=== PATIENT | male | born 1950 | race Caucasian/White ===

== ENCOUNTER → 2016-09-01 | Outpatient (CLI) | payer OTHER ==
[~2016-09-01] MED LIST: LISI5TAB3 PO; LRT5 PO; METFORMIN; NAPROXEN; PANT40TA PO; SIMVASTIN; TOPROL
[2016-09-01 12:38] LABS: ESTIMATED AVERAGE GLUCOSE 217 mg/dl; HA1C FLAG Normal (Normal)
== END | disposition home or self-care (01) ==
LOC: C.LAB 10:54
PROVIDERS: ATTEND Internal Medicine
DX: E11.9 Type 2 diabetes mellitus without complications (principal)

== ENCOUNTER → 2017-03-05 | Outpatient (CLI) | payer OTHER ==
[2017-03-05 12:31] LABS: ALT/SGPT 42 U/L (12-78); AST/SGOT 30 U/L (15-37); BLOOD UREA NITROGEN 18 mg/dl (7-18); BUN/CREATININE RATIO 18.4 (10-20); CALCIUM 9.2 mg/dl (8.5-10.1); CARBON DIOXIDE 29 mmol/L (21-32); CHLORIDE 102 mmol/L (98-107); CREATININE 0.98 mg/dl (0.60-1.40); GLUCOSE 255 mg/dl (70-99); POTASSIUM 4.6 mmol/L (3.5-5.1); SODIUM 137 mmol/L (136-145)
[2017-03-05 12:42] LABS: ALB/GLOB RATIO 0.9 (0.9-2); ALKALINE PHOSPHATASE 63 U/L (45-117); CHOLESTEROL 168 mg/dl (0-200); CHOLESTEROL/HDL RATIO 4.5; HDL CHOLESTEROL 37 mg/dl; LDL CHOLESTEROL CALCULATED 94 mg/dl; PROSTATE SPECIFIC ANTIGEN 0.517 ng/ml (0.000-4.000); TRIGLYCERIDES 187 mg/dl (0-150); VERY LOW DENSITY LIPOPROT CALC 37 mg/dl
[2017-03-06 06:08] LABS: ESTIMATED AVERAGE GLUCOSE 243 mg/dl; HA1C FLAG Normal (Normal)
== END | disposition home or self-care (01) ==
LOC: C.LAB 11:45
PROVIDERS: ATTEND Internal Medicine
DX: G47.33 Obstructive sleep apnea (adult) (pediatric) (principal)

== ENCOUNTER → 2017-07-13 | Outpatient (CLI) | payer OTHER ==
[2017-07-13 13:02] LABS: BLOOD UREA NITROGEN 22 mg/dl (7-18); CALCIUM 9.4 mg/dl (8.5-10.1); CARBON DIOXIDE 27 mmol/L (21-32); CREATININE 1.05 mg/dl (0.60-1.40); GLUCOSE 158 mg/dl (70-99); POTASSIUM 4.3 mmol/L (3.5-5.1); SODIUM 133 mmol/L (136-145)
[2017-07-13 13:33] LABS: HEMOGLOBIN A1C 8.5 % (4.5-5.6)
== END | disposition home or self-care (01) ==
LOC: C.LABPBG 09:10
PROVIDERS: ATTEND Internal Medicine
DX: E11.9 Type 2 diabetes mellitus without complications (principal); I10 Essential (primary) hypertension

== ENCOUNTER 2019-05-02 15:11 | Inpatient (IN) ==
--- NOTE | 2019-05-02 15:40 | XRay Report ---
XR chest 1V portable CLINICAL HISTORY: Atypical chest pain and shortness of breath COMPARISON STUDY: 05/02/2019 FINDINGS: The heart is enlarged. There is mild interstitial thickening, similar to the preceding stud y given differences in technique. Interstitial markings are likely accentuated due to the patient's l arge body habitus. There is no focal pulmonary consolidation. There are no pleural effusions.[ IMPRESSION: Cardiomegaly with stable chronic interstitial thickening/vascular prominence. No evidence of acute parenchymal consolidation Electronically signed by: Mitchel Bess M.D. 05/02/2019 3:39 PM
[2019-05-02 15:55] LABS: Basophils # (auto) 0.02 K/uL (0-0.2); Basophils % (auto) 0.2 %; Eosinophils # (auto) 0.11 K/uL (0-0.5); Eosinophils % (auto) 1.3 %; Hemoglobin 12.9 g/dL (14.0-18.0); Immature Granulocytes # (auto) 0.02 K/uL (0.00-0.02); Immature Granulocytes % (auto) 0.2 %; Lymphocytes # (auto) 1.48 K/uL (1.2-3.4); Lymphocytes % (auto) 17.8 %; Mean Corpuscular Hemoglobin 30.4 pg (25-34); Mean Corpuscular Hgb Conc 33.9 g/dL (32-36); Mean Corpuscular Volume 89.4 fL (80-100); Mean Platelet Volume 9.8 fL (7.4-10.4); Monocytes # (auto) 0.95 K/uL (0.11-0.59); Monocytes % (auto) 11.4 %; Neutrophils # (auto) 5.73 K/uL (1.4-6.5); Neutrophils % (auto) 69.1 %; Platelet Count 189 K/uL (130-400); RDW Coefficient of Variation 14.4 % (11.5-14.5); Red Blood Count 4.25 M/uL (4.7-6.1); White Blood Count 8.31 K/uL (4.8-10.8)
[2019-05-02 16:17] LABS: Alanine Aminotransferase 28 U/L (12-78); Albumin Globulin Ratio 0.7 (0.9-2); Albumin Level 3.1 gm/dl (3.4-5.0); Alkaline Phosphatase 89 U/L (45-117); Aspartate Aminotransferase 21 U/L (15-37); BUN Creatinine Ratio 14.5 (10-20); Bilirubin,Total 0.8 mg/dl (0.2-1); Blood Urea Nitrogen 15 mg/dl (7-18); Calcium 9.2 mg/dl (8.5-10.1); Carbon Dioxide 25 mmol/L (21-32); Chloride 102 mmol/L (98-107); Est GFR (African American) 84.7; Est GFR (Non-African American) 73.1; Globulin 4.5 gm/dl (2.5-4.0); Glucose 237 mg/dl (70-99); Lipase 51 U/L (73-393); Magnesium 1.7 mg/dl (1.8-2.4); NT Pro B Type Natriuretic Pept 146 pg/ml (0-900); Potassium 4.5 mmol/L (3.5-5.1); Sodium 135 mmol/L (136-145); Total Protein 7.6 gm/dl (6.4-8.2); Troponin I < 0.015 ng/ml (0-0.045)
[2019-05-02] MEDS ORDERED: OPTIRAY 320 125ml IV PRN (16:32)
[2019-05-02] MEDS ORDERED: MAGNESIUM SULFATE / D5W 1 GM/100 ML BAG IV ONE (16:40)
--- NOTE | 2019-05-02 16:57 | CT Scan Report ---
CHEST CTA for PULMONARY ARTERIES CT DOSE: 1096.11 mGy.cm HISTORY: Shortness of breath. TECHNIQUE: Multiaxial CT images of the chest were performed following the intravenous administration of contrast to evaluate the pulmonary arteries. Maximal intensity projection images were also obtaine d. A dose lowering technique was utilized adhering to the principles of ALARA. COMPARISON STUDY: Chest CTA 09/26/2013. FINDINGS: Normal caliber thoracic aorta with no evidence for dissection. The heart is normal in size. No filling defects within the pulmonary arteries to suggest pulmonary embolus. Trace right pleural e ffusion. Small pericardial effusion. There appears a mild enhancement and thickening within the peric ardial lining. This raises the possibility of a pericarditis. This is new from the prior study. The v isualized liver, spleen, and adrenal glands are unremarkable. Slight increase in size in the mildly e nlarged bilateral hilar lymph nodes. Dominant right hilar lymph node measures 19 x 12 mm. Mediastinal lymph nodes are within normal limits. No suspicious lytic are blastic osseous lesions. Mild narrowin g and mild bronchial wall thickening within the central airways. No focal lung consolidations to sugg est pneumonia. IMPRESSION: 1. No evidence for pulmonary embolus. 2. Small pericardial effusion. There appears to be mild enhancement and thickening within the pericar dial lining. This raises the possibility of a pericarditis. This is new from the prior study. 3. Mild bronchial wall thickening and mild narrowing within the central bronchi. This may represent a nonspecific bronchitis. 4. Mild bilateral hilar lymphadenopathy. This has slightly progressed. 5. Trace right pleural effusion. Electronically signed by: Tomer Lema M.D. 05/02/2019 4:56 PM
[2019-05-02] MEDS ORDERED: KETOROLAC TROMETHAMINE 15 MG/ML VIAL IV ONE (17:18)
--- NOTE | 2019-05-02 17:18 | Emergency Department Note ---
Entered by Neva Ramirez acting as a scribe for Philomena Crawford DO History of Present Illness General Chief complaint: Shortness of Breath/Dyspnea Stated complaint: SOB Time Seen by Provider: 05/02/19 15:19 Source: patient Mode of arrival: ambulatory Limitations: no limitations History of Present Illness Provider complaint: shortness of breath Onset (ago): week(s) Location: chest Radiation: non-radiation Severity: severe Pain Consistency: + constant Quality: + other (shortness of breath) Relieved By: + rest; not by medication (breathing treatment) Exacerbated By: + movement Associated symptoms: + denies other symptoms (dizziness, leg swelling) and + cough; no chest pain, no fever/chills, no nausea/vomiting and no syncope Treatments prior to arrival: none This is a 68-year-old male with a past history of hypertension, GERD, diabetes, sleep apnea, dyslipidemia, as well as others who presents with complaints of worsening shortness of breath. Patient states he was previously told he had mild stress-induced asthma, although approximately 1 month ago he had what he thought was perhaps a cold or bronchitis. He states he was seen and evaluated by his family doctor at that time and given a course of antibiotics, steroids as well as an inhaler. Patient states he felt well for about a week or so and then after that he began to feel worse again. States he attempted to go to the [facility] again today and was sent to the emergency room due to the severity of his symptoms. States he was given another breathing treatment in the doctor's office but this did not help. Patient denies any prior cardiac history. Patient denies any accompanying chest pain, dizziness, nausea or vomiting. Patient states he has a cough but it is nonproductive. No recent fevers or chills. No recent increased lower extremity edema. Home Medications Home Medications Medication Instructions Recorded Confirmed Type acetaminophen 500 mg tablet 1,500 mg PO HS tab 01/18/19 05/02/19 History aspirin 81 mg tablet,delayed 81 mg PO QAM 01/18/19 05/02/19 History release lancets 33 gauge #100 ea 01/18/19 05/02/19 History naproxen sodium 220 mg tablet 220 mg PO HS PRN tab 01/18/19 05/02/19 History blood sugar diagnostic #10 ea 01/28/19 05/02/19 History metformin 1,000 mg tablet 1,000 mg PO BID #180 tab 01/28/19 05/02/19 Rx CPAP Machine #1 ea 01/29/19 05/02/19 Rx miscellaneous medical supply #1 ea 01/29/19 05/02/19 Rx glimepiride 4 mg tablet 6 mg PO QAM tab 04/10/19 05/02/19 History albuterol sulfate [Ventolin HFA] 1 puffs INH Q6H PRN 05/02/19 05/02/19 History fluticasone 100 mcg-salmeterol 50 1 puffs INH BID #60 ea 05/02/19 05/02/19 Rx mcg/dose blistr powdr for inhalation lisinopril 5 mg PO QAM 05/02/19 05/02/19 History metoprolol succinate 100 mg PO QAM 05/02/19 05/02/19 History omeprazole 20 mg PO QAM 05/02/19 05/02/19 History simvastatin 20 mg PO QAM 05/02/19 05/02/19 History Allergies Allergy/AdvReac Type Severity Reaction Status Date / Time nickel Allergy Mild rash where Verified 05/02/19 16:45 it touches skin No Known Drug Allergies Allergy . Verified 05/02/19 16:45 Past Med/Surg History Medical History Asthma BMI 40.0-44.9, adult Chronic fatigue syndrome Dyslipidemia GERD (gastroesophageal reflux disease) Hearing difficulty HTN (hypertension) Hypertriglyceridemia Obesity Obstructive sleep apnea Periodic limb movement disorder Type 2 diabetes mellitus, uncontrolled Surgical History H/O toe surgery Previous back surgery Rotator cuff arthropathy S/P tonsillectomy and adenoidectomy Family History Mother Lung cancer Father Myocardial infarction Social History Preferred Language: Moldovan Communication Ability: Effective Fire Dispatcher Required: No Beliefs That Will Affect Care: None marital status: Current Living Situation: Spouse current occupational status: unemployed Other Information That Helps Us Care for You: No Feels Safe at Home: Yes Safety Concerns: Feels Safe At This Time Smoking Status: Former smoker Hx Alcohol Use: No Hx Substance Use: No Dental Care, Regularly: No Physical Activity Frequency Comment: limited by physical condition Review of Systems See HPI for pertinent positives & negatives. and A total of 10 systems reviewed and were otherwise negative Physical Exam Vital Signs Vital Signs - 24 hr 05/02/19 15:15 05/02/19 15:31 05/02/19 15:44 Temperature 36.8 C Temperature Source Oral Pulse Rate 96 H 89 87 Pulse Rate from SpO2 Sensor 95 H 87 Respiratory Rate 28 H 30 H 32 H Respiratory Effort / Characteristics Blood Pressure 163/84 H 131/78 Blood Pressure Mean 110 103 Blood Pressure Position Sitting Pulse Oximetry 96 94 97 Oxygen Delivery Method Room Air Oxygen Flow Rate Sepsis Recent Fever Within 48 Hours No Sepsis New/Unexplained Change in Mental Status No Sepsis Action Taken by Nursing No Action Required Oxygen Flow Rate - Titration Pulse Oximetry Post Tiitration 05/02/19 15:45 05/02/19 15:54 05/02/19 16:00 Temperature Temperature Source Pulse Rate 84 Pulse Rate from SpO2 Sensor 84 Respiratory Rate 27 H Respiratory Effort / Characteristics Labored Blood Pressure 143/80 H Blood Pressure Mean 103 Blood Pressure Position Pulse Oximetry 96 97 Oxygen Delivery Method Nasal Cannula Oxygen Flow Rate 0 Sepsis Recent Fever Within 48 Hours Sepsis New/Unexplained Change in Mental Status Sepsis Action Taken by Nursing Oxygen Flow Rate - Titration 2 Pulse Oximetry Post Tiitration 98 05/02/19 16:01 05/02/19 16:34 05/02/19 16:35 Temperature Temperature Source Pulse Rate 83 82 83 Pulse Rate from SpO2 Sensor 83 82 Respiratory Rate 29 H 32 H 31 H Respiratory Effort / Characteristics Blood Pressure 139/77 Blood Pressure Mean 92 Blood Pressure Position Pulse Oximetry 97 98 Oxygen Delivery Method Oxygen Flow Rate Sepsis Recent Fever Within 48 Hours Sepsis New/Unexplained Change in Mental Status Sepsis Action Taken by Nursing Oxygen Flow Rate - Titration Pulse Oximetry Post Tiitration 05/02/19 17:00 05/02/19 17:30 Temperature Temperature Source Pulse Rate 82 86 Pulse Rate from SpO2 Sensor 82 86 Respiratory Rate 23 24 Respiratory Effort / Characteristics Blood Pressure 121/75 146/71 H Blood Pressure Mean 99 96 Blood Pressure Position Pulse Oximetry 97 98 Oxygen Delivery Method Nasal Cannula Nasal Cannula Oxygen Flow Rate 2 2 Sepsis Recent Fever Within 48 Hours Sepsis New/Unexplained Change in Mental Status Sepsis Action Taken by Nursing Oxygen Flow Rate - Titration Pulse Oximetry Post Tiitration GENERAL: alert, well nourished, severe distress EYE EXAM: normal conjunctiva, PERRL and EOM's grossly intact OROPHARYNX: no exudate, no erythema, lips, buccal mucosa, and tongue normal and mucous membranes are moist NECK: supple, no nuchal rigidity, no adenopathy, non-tender, no stridor. LUNGS: Clear to auscultation. No w/r/r, increased work of breathing, no obvious retractions, prolonged expiratory phase, no nasal flaring, tachypnea HEART: no murmurs, S1 normal and S2 normal ABDOMEN: abdomen soft, non-tender, normo-active bowel sounds, no masses, no rebound or guarding. Umbilical hernia noted, soft and easily reduced. Protub erant abdomen. BACK: Back is symmetrical on inspection and there is no deformity, no midline tenderness, no CVA tenderness. SKIN: no rashes and no bruising UPPER EXTREMITIES: upper extremities are grossly normal. FROM, nml pulses b/l. LOWER EXTREMITIES: No pitting edema. FROM, nml pulses b/l. NEURO EXAM: Normal sensorium, cranial nerves II-XII grossly intact, normal speech, no gross weakness of arms, no gross weakness of legs. Gross sensation intact. Course Course 1524: The patient was evaluated in room C3. A complete history and physical exam was performed. 1543: I performed a bedside cardiac ultrasound at this time. 1715: I reevaluated the patient and updated him on his test results. I discussed the treatment plan with him. He verbally agrees and understands. 1757: I discussed the patient's case with Dr. Sam- [facility] [place] Hospitalist. He will evaluate the patient for further management. Administered Medications Acetaminophen (Tylenol) 1,500 mg PO HS [facility] Stop: 06/01/19 22:09 Last Admin: 05/04/19 20:53 Dose: 1,500 mg Documented by: [id number] Admin: 05/03/19 20:48 Dose: 1,500 mg Documented by: [id number] Admin: 05/02/19 23:12 Dose: Not Given Documented by: [id number] Acetaminophen (Tylenol) 650 mg PO Q4H PRN PRN Reason: Pain Stop: 06/02/19 08:23 Last Admin: 05/03/19 08:39 Dose: 650 mg Documented by: [id number] Albuterol (Ventolin Hfa) 1 puffs INH Q6H PRN PRN Reason: Shortness Of Breath Or Wheezing Stop: 06/01/19 22:09 Last Admin: 05/03/19 08:02 Dose: 1 puffs Documented by: [id number] Albuterol (Duoneb) 3 ml NEB Q4R [facility]UL[facility] Stop: 06/01/19 22:59 Last Admin: 05/04/19 19:35 Dose: 3 ml Documented by: [id number] Admin: 05/04/19 15:13 Dose: 3 ml Documented by: [id number] Admin: 05/04/19 11:32 Dose: 3 ml Documented by: [id number] Admin: 05/04/19 07:02 Dose: 3 ml Documented by: [id number] Admin: 05/04/19 03:28 Dose: 3 ml Documented by: [id number] Admin: 05/03/19 23:08 Dose: 3 ml Documented by: [id number] Admin: 05/03/19 19:06 Dose: 3 ml Documented by: [id number] Admin: 05/03/19 15:31 Dose: 3 ml Documented by: [id number] Admin: 05/03/19 11:11 Dose: 3 ml Documented by: [id number] Admin: 05/03/19 06:58 Dose: 3 ml Documented by: [id number] Admin: 05/03/19 03:47 Dose: 3 ml Documented by: [id number] Admin: 05/02/19 23:15 Dose: 3 ml Documented by: [id number] Aspirin (Ecotrin Ectab) 81 mg PO QAM [facility] Stop: 06/02/19 08:59 Last Admin: 05/04/19 08:51 Dose: 81 mg Documented by: [id number] Admin: 05/03/19 08:01 Dose: 81 mg Documented by: [id number] Azithromycin (Zithromax) 250 mg PO QAM [facility]; Protocol Stop: 05/10/19 08:59 Last Admin: 05/04/19 08:49 Dose: 250 mg Documented by: [id number] Admin: 05/03/19 08:17 Dose: 250 mg Documented by: [id number] Diphenhydramine HCl (Benadryl Capsule) 25 mg PO TID [facility] Stop: 06/02/19 08:59 Last Admin: 05/04/19 20:53 Dose: 25 mg Documented by: [id number] Admin: 05/04/19 13:49 Dose: 25 mg Documented by: [id number] Admin: 05/04/19 08:49 Dose: 25 mg Documented by: [id number] Admin: 05/03/19 21:17 Dose: 25 mg Documented by: [id number] Admin: 05/03/19 14:58 Dose: 25 mg Documented by: [id number] Admin: 05/03/19 08:20 Dose: 25 mg Documented by: [id number] Enoxaparin Sodium (Lovenox) 30 mg SQ Q24H [facility] Stop: 06/01/19 22:29 Last Admin: 05/04/19 20:54 Dose: 30 mg Documented by: [id number] Admin: 05/03/19 21:48 Dose: 30 mg Documented by: [id number] Admin: 05/02/19 22:46 Dose: 30 mg Documented by: [id number] Fluticasone Propionate (Flonase) 1 sprays NA BID [facility] Stop: 06/02/19 08:59 Last Admin: 05/04/19 20:53 Dose: 1 sprays Documented by: [id number] Admin: 05/04/19 08:50 Dose: 1 sprays Documented by: [id number] Admin: 05/03/19 20:49 Dose: 1 sprays Documented by: [id number] Admin: 05/03/19 08:21 Dose: 1 sprays Documented by: [id number] Hydralazine HCl (Apresoline) 10 mg PO TID [facility] Stop: 06/02/19 08:59 Last Admin: 05/04/19 20:53 Dose: 10 mg Documented by: [id number] Admin: 05/04/19 13:48 Dose: 10 mg Documented by: [id number] Admin: 05/04/19 08:49 Dose: 10 mg Documented by: [id number] Admin: 05/03/19 20:49 Dose: 10 mg Documented by: [id number] Admin: 05/03/19 14:54 Dose: 10 mg Documented by: [id number] Admin: 05/03/19 08:47 Dose: 10 mg Documented by: [id number] Methylprednisolone 60 mg/ (Syringe) 0.96 mls @ 1.5 mls/min IV Q8H [facility] Stop: 06/01/19 22:29 Last Admin: 05/04/19 13:48 Dose: 1.5 mls/min Documented by: [id number] Admin: 05/04/19 06:30 Dose: 1.5 mls/min Documented by: [id number] Admin: 05/03/19 21:49 Dose: 1.5 mls/min Documented by: [id number] Admin: 05/03/19 16:43 Dose: 1.5 mls/min Documented by: [id number] Admin: 05/03/19 06:27 Dose: 1.5 mls/min Documented by: [id number] Admin: 05/02/19 22:46 Dose: 1.5 mls/min Documented by: [id number] Insulin Human Regular 250 (units/ Sodium Chloride) 250 mls @ 5 mls/hr IV .Q24H [facility]; Protocol Stop: 06/03/19 12:44 Last Titration: 05/04/19 21:43 Dose: 5 units/hr, 5 mls/hr Documented by: [id number] Cosigned by: [id number] Titration: 05/04/19 20:46 Dose: 5 units/hr, 5 mls/hr Documented by: [id number] Cosigned by: [id number] Titration: 05/04/19 19:40 Dose: 5 units/hr, 5 mls/hr Documented by: [id number] Cosigned by: [id number] Titration: 05/04/19 18:39 Dose: 5 units/hr, 5 mls/hr Documented by: [id number] Cosigned by: [id number] Titration: 05/04/19 17:50 Dose: 6.2 units/hr, 6.2 mls/hr Documented by: [id number] Cosigned by: [id number] Titration: 05/04/19 16:48 Dose: 6.2 units/hr, 6.2 mls/hr Documented by: [id number] Cosigned by: [id number] Titration: 05/04/19 15:46 Dose: 5.2 units/hr, 5.2 mls/hr Documented by: [id number] Cosigned by: [id number] Titration: 05/04/19 14:45 Dose: 4.3 units/hr, 4.3 mls/hr Documented by: [id number] Cosigned by: [id number] Titration: 05/04/19 13:47 Dose: 3.6 units/hr, 3.6 mls/hr Documented by: [id number] Cosigned by: [id number] Admin: 05/04/19 12:30 Dose: 3 units/hr, 3 mls/hr Documented by: [id number] Cosigned by: [id number] Insulin Aspart (Novolog Flexpen) 0 units SC ACHS [facility] Stop: 06/02/19 11:29 Last Admin: 05/04/19 20:55 Dose: Not Given Documented by: [id number] Admin: 05/04/19 16:55 Dose: 10 units Documented by: [id number] Cosigned by: [id number] Admin: 05/04/19 12:32 Dose: 8 units Documented by: [id number] Cosigned by: [id number] Admin: 05/04/19 08:46 Dose: 14 units Documented by: [id number] Cosigned by: [id number] Admin: 05/03/19 21:15 Dose: Not Given Documented by: [id number] Cosigned by: [id number] Admin: 05/03/19 18:07 Dose: Not Given Documented by: [id number] Cosigned by: [id number] Admin: 05/03/19 12:21 Dose: 10 units Documented by: [id number] Cosigned by: [id number] Insulin Glargine (Lantus Solostar Pen) 30 units SC BID [facility]; Protocol Stop: 06/02/19 20:59 Last Admin: 05/04/19 20:55 Dose: 30 units Documented by: [id number] Cosigned by: [id number] Menthol (Nice) 1 sarah BUCCAL PRN PRN PRN Reason: Sore Throat Stop: 06/02/19 21:55 Last Admin: 05/03/19 22:02 Dose: 1 sarah Documented by: [id number] Metoprolol Succinate (Toprol Xl) 100 mg PO [facility] Stop: 06/02/19 08:59 Last Admin: 05/04/19 08:49 Dose: 100 mg Documented by: [id number] Admin: 05/03/19 08:17 Dose: 100 mg Documented by: [id number] Pantoprazole Sodium (Protonix) 40 mg PO [facility] Stop: 06/02/19 08:59 Last Admin: 05/04/19 08:50 Dose: 40 mg Documented by: [id number] Admin: 05/03/19 08:01 Dose: 40 mg Documented by: [id number] Pseudoephedrine HCl (Suphedrine Sinus Congestion) 30 mg PO TID [facility] Stop: 06/02/19 08:59 Last Admin: 05/04/19 20:53 Dose: 30 mg Documented by: [id number] Admin: 05/04/19 13:49 Dose: 30 mg Documented by: [id number] Admin: 05/04/19 08:49 Dose: 30 mg Documented by: [id number] Admin: 05/03/19 20:48 Dose: 30 mg Documented by: [id number] Admin: 05/03/19 14:58 Dose: 30 mg Documented by: [id number] Admin: 05/03/19 08:20 Dose: 30 mg Documented by: [id number] Fluticasone/Salmeterol (Advair Diskus 100/50) 1 puffs INH BID [facility] Stop: 06/01/19 22:09 Last Admin: 05/04/19 20:53 Dose: 1 puffs Documented by: [id number] Admin: 05/04/19 08:47 Dose: 1 puffs Documented by: [id number] Admin: 05/03/19 20:49 Dose: 1 puffs Documented by: [id number] Admin: 05/03/19 08:00 Dose: 1 puffs Documented by: [id number] Admin: 05/02/19 22:47 Dose: 1 puffs Documented by: [id number] Simvastatin (Zocor) 20 mg PO QAM [facility] Stop: 06/02/19 08:59 Last Admin: 05/04/19 08:50 Dose: 20 mg Documented by: [id number] Admin: 05/03/19 08:01 Dose: 20 mg Documented by: [id number] Sodium Chloride ([place] Nasal) 2 sprays NA Q4 PRN PRN Reason: Nasal Congestion Stop: 06/03/19 10:00 Last Admin: 05/04/19 18:35 Dose: 2 sprays Documented by: [id number] Discontinued Medications Acetaminophen (Tylenol) 650 mg PO NOW STA Stop: 05/02/19 20:55 Last Admin: 05/02/19 21:09 Dose: 650 mg Documented by: [id number] Magnesium Sulfate/Dextrose (Magnesium Sulfate / D5w) 1 gm in 100 mls @ 100 mls/hr IV ONE ONE Stop: 05/02/19 17:39 Last Infusion: 05/02/19 17:51 Dose: 0 mls/hr Documented by: [id number] Admin: 05/02/19 16:51 Dose: 100 mls/hr Documented by: [id number] Insulin Human Regular 250 (units/ Sodium Chloride) 250 mls @ 0 mls/hr IV .Q0M [facility]; Protocol Stop: 06/02/19 08:44 Last Titration: 05/04/19 12:39 Dose: 0 units/hr, 0 mls/hr Documented by: [id number] Cosigned by: [id number] Titration: 05/03/19 21:05 Dose: 0 units/hr, 0 mls/hr Documented by: [id number] Cosigned by: [id number] Titration: 05/03/19 19:30 Dose: 0 units/hr, 0 mls/hr Documented by: [id number] Cosigned by: [id number] Titration: 05/03/19 19:30 Dose: 11.5 units/hr, 11.5 mls/hr Documented by: [id number] Cosigned by: [id number] Titration: 05/03/19 18:30 Dose: 14.4 units/hr, 14.4 mls/hr Documented by: [id number] Cosigned by: [id number] Titration: 05/03/19 17:38 Dose: 0 units/hr, 0 mls/hr Documented by: [id number] Cosigned by: [id number] Titration: 05/03/19 16:48 Dose: 24 units/hr, 24 mls/hr Documented by: [id number] Cosigned by: [id number] Titration: 05/03/19 15:54 Dose: 20 units/hr, 20 mls/hr Documented by: [id number] Cosigned by: [id number] Titration: 05/03/19 14:30 Dose: 0 units/hr, 0 mls/hr Documented by: [id number] Cosigned by: [id number] Titration: 05/03/19 13:47 Dose: 21.6 units/hr, 21.6 mls/hr Documented by: [id number] Cosigned by: [id number] Titration: 05/03/19 12:53 Dose: 15.4 units/hr, 15.4 mls/hr Documented by: [id number] Cosigned by: [id number] Titration: 05/03/19 11:39 Dose: 11 units/hr, 11 mls/hr Documented by: [id number] Cosigned by: [id number] Titration: 05/03/19 10:51 Dose: 9.2 units/hr, 9.2 mls/hr Documented by: [id number] Cosigned by: [id number] Titration: 05/03/19 09:51 Dose: 6.6 units/hr, 6.6 mls/hr Documented by: [id number] Cosigned by: [id number] Admin: 05/03/19 08:40 Dose: 4.7 units/hr, 4.7 mls/hr Documented by: [id number] Cosigned by: [id number] Insulin Human Regular 3 units/ (Syringe) 3 mls @ 0 mls/min IV 1230 ONE Stop: 05/04/19 12:31 Last Admin: 05/04/19 12:30 Dose: 3 mls/min Documented by: [id number] Cosigned by: [id number] Insulin Aspart (Novolog Flexpen) 0 units SC Q6 [facility] Stop: 06/02/19 00:00 Last Admin: 05/03/19 06:32 Dose: Not Given Documented by: [id number] Admin: 05/02/19 23:43 Dose: 2 units Documented by: [id number] Cosigned by: [id number] Insulin Aspart (Novolog Flexpen) 0 units SC TODAY@0630 [facility] Stop: 05/03/19 07:00 Last Admin: 05/03/19 06:26 Dose: 12 units Documented by: [id number] Cosigned by: [id number] Insulin Aspart (Novolog Flexpen) 0 units SC 0000,0400 [facility]; Protocol Stop: 06/03/19 00:00 Last Admin: 05/04/19 03:40 Dose: 6 units Documented by: [id number] Cosigned by: [id number] Admin: 05/04/19 00:13 Dose: 4 units Documented by: [id number] Cosigned by: [id number] Insulin Glargine (Lantus Solostar Pen) 40 units SC NOW ONE Stop: 05/03/19 08:31 Last Admin: 05/03/19 08:46 Dose: 40 units Documented by: [id number] Cosigned by: [id number] Insulin Glargine (Lantus Solostar Pen) 20 units SC BID [facility]; Protocol Stop: 06/02/19 20:59 Last Admin: 05/04/19 08:51 Dose: 20 units Documented by: [id number] Cosigned by: [id number] Admin: 05/03/19 21:47 Dose: 20 units Documented by: [id number] Cosigned by: [id number] Insulin Human Regular (Novolin R Bolus From Bag) 4.5 units IV ONE ONE Stop: 05/03/19 08:45 Last Admin: 05/03/19 08:42 Dose: 4.5 units Documented by: [id number] Cosigned by: [id number] Ioversol (Optiray 320 125ml) 93 ml IV ONCE PRN PRN Reason: Interaction Checking Stop: 05/06/19 16:31 Last Admin: 05/02/19 16:32 Dose: 93 ml Documented by: [id number] Ketorolac Tromethamine (Toradol) 10 mg IV NOW ONE Stop: 05/02/19 17:19 Last Admin: 05/02/19 17:30 Dose: Not Given Documented by: [id number] Menthol (Nice) Confirm Administered Dose 24 sarah BUCCAL .STK-MED ONE Stop: 05/03/19 18:02 Last Admin: 05/03/19 18:09 Dose: 24 sarah Documented by: [id number] Miscellaneous (Insulin Protocol Goal Range) 1 ea N/A ONE ONE Stop: 05/03/19 08:27 Last Admin: 05/03/19 08:35 Dose: 1 ea Documented by: [id number] Miscellaneous (Insulin Protocol Severe Stress) 1 ea N/A ONE ONE Stop: 05/03/19 08:27 Last Admin: 05/03/19 08:35 Dose: 1 ea Documented by: [id number] Critical Care Time Critical Care Time: Yes Total Critical Care Time: 40 Critical care of 40 min performed to assess and manage high likelihood of life- threatening respiratory distress, involving labs/imaging performed with assessment to evaluate acute respiratory distress diagnosis with frequent reassessment. This time includes bedside time, treatment discussions with patient/family/consultants, documentation time and excludes procedure time. Medical Decision Making Differential Diagnosis Differential diagnoses includes but is not limited to pneumonia, bronchitis, COPD/Asthma exacerbation, pneumothorax, pulmonary embolism, congestive heart failure, acute coronary syndrome Medical Records Attestation: I reviewed the patient's medical records. Home Medications Current Medication List: was personally reviewed by me Laboratory Data Attestation: I reviewed the patient's lab results. Result diagrams: 05/04/19 06:43 05/04/19 06:43 Lab Results 05/02/19 05/02/19 05/02/19 Range/Units 15:43 15:43 15:43 WBC 8.31 (4.8-10.8) K/uL RBC 4.25 L (4.7-6.1) M/uL Hgb 12.9 L (14.0-18.0) g/dL Hct 38.0 L (42-52) % MCV 89.4 (80-100) fL MCH 30.4 (25-34) pg MCHC 33.9 (32-36) g/dL RDW Std Deviation 47.0 H (36.4-46.3) fL RDW Coeff of Shireen 14.4 (11.5-14.5) % Plt Count 189 (130-400) K/uL MPV 9.8 (7.4-10.4) fL Immature Gran % (Auto) 0.2 % Neut % (Auto) 69.1 % Lymph % (Auto) 17.8 % [place] % (Auto) 11.4 % Eos % (Auto) 1.3 % Baso % (Auto) 0.2 % Immature Gran # (Auto) 0.02 (0.00-0.02) K/uL Neut # (Auto) 5.73 (1.4-6.5) K/uL Lymph # (Auto) 1.48 (1.2-3.4) K/uL [place] # (Auto) 0.95 H (0.11-0.59) K/uL Eos # (Auto) 0.11 (0-0.5) K/uL Baso # (Auto) 0.02 (0-0.2) K/uL ESR (0-14) mm/hr D-Dimer Cancelled Sodium 135 L (136-145) mmol/L Potassium 4.5 (3.5-5.1) mmol/L Chloride 102 (98-107) mmol/L Carbon Dioxide 25 (21-32) mmol/L Anion Gap 8.0 (3-11) BUN 15 (7-18) mg/dl Creatinine 1.05 (0.6-1.4) mg/dl Est Cr Clr Drug Dosing Not Reportable Est GFR ( Amer) 84.7 Est GFR (Non-Af Amer) 73.1 BUN/Creatinine Ratio 14.5 (10-20) Glucose 237 H (70-99) mg/dl Calcium 9.2 (8.5-10.1) mg/dl Magnesium 1.7 L (1.8-2.4) mg/dl Total Bilirubin 0.8 (0.2-1) mg/dl AST 21 (15-37) U/L ALT 28 (12-78) U/L Alkaline Phosphatase 89 (45-117) U/L Troponin I < 0.015 (0-0.045) ng/ml C-Reactive Protein (0-0.29) mg/dl NT-Pro-B Natriuret Pep 146 (0-900) pg/ml Total Protein 7.6 (6.4-8.2) gm/dl Albumin 3.1 L (3.4-5.0) gm/dl Globulin 4.5 H (2.5-4.0) gm/dl Albumin/Globulin Ratio 0.7 L (0.9-2) Lipase 51 L (73-393) U/L Specimen Hemolysis 05/02/19 05/02/19 05/02/19 Range/Units 15:43 15:43 16:42 WBC (4.8-10.8) K/uL RBC (4.7-6.1) M/uL Hgb (14.0-18.0) g/dL Hct (42-52) % MCV (80-100) fL MCH (25-34) pg MCHC (32-36) g/dL RDW Std Deviation (36.4-46.3) fL RDW Coeff of Shireen (11.5-14.5) % Plt Count (130-400) K/uL MPV (7.4-10.4) fL Immature Gran % (Auto) % Neut % (Auto) % Lymph % (Auto) % [place] % (Auto) % Eos % (Auto) % Baso % (Auto) % Immature Gran # (Auto) (0.00-0.02) K/uL Neut # (Auto) (1.4-6.5) K/uL Lymph # (Auto) (1.2-3.4) K/uL [place] # (Auto) (0.11-0.59) K/uL Eos # (Auto) (0-0.5) K/uL Baso # (Auto) (0-0.2) K/uL ESR 82 H (0-14) mm/hr D-Dimer 1740 H* Sodium (136-145) mmol/L Potassium (3.5-5.1) mmol/L Chloride (98-107) mmol/L Carbon Dioxide (21-32) mmol/L Anion Gap (3-11) BUN (7-18) mg/dl Creatinine (0.6-1.4) mg/dl Est Cr Clr Drug Dosing Est GFR ( Amer) Est GFR (Non-Af Amer) BUN/Creatinine Ratio (10-20) Glucose (70-99) mg/dl Calcium (8.5-10.1) mg/dl Magnesium (1.8-2.4) mg/dl Total Bilirubin (0.2-1) mg/dl AST (15-37) U/L ALT (12-78) U/L Alkaline Phosphatase (45-117) U/L Troponin I (0-0.045) ng/ml C-Reactive Protein 6.74 H (0-0.29) mg/dl NT-Pro-B Natriuret Pep (0-900) pg/ml Total Protein (6.4-8.2) gm/dl Albumin (3.4-5.0) gm/dl Globulin (2.5-4.0) gm/dl Albumin/Globulin Ratio (0.9-2) Lipase (73-393) U/L Specimen Hemolysis Imaging Data Radiologist's Impression: Radiology results as stated below per my review and the radiologist's interpretation: XR chest 1V portable CLINICAL HISTORY: Atypical chest pain and shortness of breath COMPARISON STUDY: 05/02/2019 FINDINGS: The heart is enlarged. There is mild interstitial thickening, similar to the preceding study given differences in technique. Interstitial markings are likely accentuated due to the patient's large body habitus. There is no focal pulmonary consolidation. There are no pleural effusions.[ IMPRESSION: Cardiomegaly with stable chronic interstitial thickening/vascular prominence. No evidence of acute parenchymal consolidation Electronically signed by: Mitchel Bess M.D. 05/02/2019 3:39 PM CHEST CTA for PULMONARY ARTERIES CT DOSE: 1096.11 mGy.cm HISTORY: Shortness of breath. TECHNIQUE: Multiaxial CT images of the chest were performed following the intravenous administration of contrast to evaluate the pulmonary arteries. Maximal intensity projection images were also obtained. A dose lowering technique was utilized adhering to the principles of ALARA. COMPARISON STUDY: Chest CTA 09/26/2013. FINDINGS: Normal caliber thoracic aorta with no evidence for dissection. The heart is normal in size. No filling defects within the pulmonary arteries to suggest pulmonary embolus. Trace right pleural effusion. Small pericardial effusion. There appears a mild enhancement and thickening within the pericardial lining. This raises the possibility of a pericarditis. This is new from the prior study. The visualized liver, spleen, and adrenal glands are unremarkable. Slight increase in size in the mildly enlarged bilateral hilar lymph nodes. Dominant right hilar lymph node measures 19 x 12 mm. Mediastinal lymph nodes are within normal limits. No suspicious lytic are blastic osseous lesions. Mild narrowing and mild bronchial wall thickening within the central airways. No focal lung consolidations to suggest pneumonia. IMPRESSION: 1. No evidence for pulmonary embolus. 2. Small pericardial effusion. There appears to be mild enhancement and thickening within the pericardial lining. This raises the possibility of a pericarditis. This is new from the prior study. 3. Mild bronchial wall thickening and mild narrowing within the central bronchi. This may represent a nonspecific bronchitis. 4. Mild bilateral hilar lymphadenopathy. This has slightly progressed. 5. Trace right pleural effusion. Electronically signed by: Tomer Lema M.D. 05/02/2019 4:56 PM ECG Data Attestation: I personally reviewed and interpreted this ECG as follows: Indication: + SOB/dyspnea Rate (beats per minute): 89 Rhythm: + sinus rhythm ECG [place]: + Normal ECG ST segments: no ST depression and no ST elevation ECG Findings: + Other (normal intervals, low voltage); no PACs and no PVCs Blood Pressure Blood Pressure Findings: Elevated blood pressure Blood Pressure Disposition: further management by hospitalist SHELBI Narrative Pt here with increased WOB and reported hx of asthma. Pt recently treated for presumed bronchitis and symptoms returned and worsening this past week. No relief with neb tx. Pt here improved at rest, never hypoxic. Labs reassuring and cxr unremarkable. However, given severity of symptoms and elevated dimer, pt sent for CTA chest. This revealed small pericardial effusion and possible pericarditis. Due to concern for risk factors for ACS additionally, I discussed with pt additional inpatient eval/tx. We discussed all results and he was in agreement with the plan. No evidence for ACS. Pt continued to have increased WOB and was placed on BiPap while in the ER. Other VS stable. No fever. Unclear if actually related to asthma/COPD vs pericarditis noted on CTA chest. No evidence of PE or dissection. No pneumonia seen or pleural effusion. Impression & Plan Dyspnea, Pericardial effusion, Pericarditis, Hypomagnesemia Discharge Plan Visit Data *Final* Discharge Date/Time: 05/02/19 21:48 Chief Complaint: Shortness of Breath/Dyspnea Stated Complaint: SOB ED Provider: Philomena Crawford Discharge Problem: Dyspnea, Pericardial effusion, Pericarditis, Hypomagnesemia Patient Disposition: Admitted As Inpatient Condition: Good Discharge Instructions Interventions: ED Discharge Assessment Last Done: 05/02/19 21:48 Discharge Problem: Dyspnea Qualifiers: Dyspnea type: unspecified Qualified Code(s): R06.00 - Dyspnea, unspecified Pericarditis Qualifiers: Pericarditis type: unspecified type Chronicity: unspecified Qualified Code(s): I31.9 - Disease of pericardium, unspecified The scribe's documentation has been prepared under my direction and personally reviewed by me in its entirety. I confirm that the note above accurately reflects all work, treatment, procedures, and medical decision making performed by me.
[2019-05-02 17:23] LABS: D Dimer 1740 ug/L FEU (0-500)
[2019-05-02] MEDS ORDERED: ACETAMINOPHEN 325 MG TAB PO STA (20:54)
--- NOTE | 2019-05-02 21:32 | History & Physical Report ---
Date of Service May 02, 2019 Assessment & Plan (1) Dyspnea: 68-year-old male with history of just induced asthma, obstructive sleep apnea on CPAP (reports being compliant), hypertension, hyperlipidemia, DM 2, GERD, obesity, hearing difficulty presents with worsening shortness of breath x3 weeks. Dyspnea: Concern for asthma exacerbation versus pulmonary hypertension versus pulmonary fibrosis Afebrile, tachypneic initially No WBC elevation Placed on nasal cannula then required BiPAP for respiratory distress CTA chest: Concern for bronchitis, trace right pleural effusion, mild bilateral hilar lymphadenopathy, small pericardial effusion and concern for pericarditis Chest x-ray: Cardiomegaly with stable chronic interstitial thickening/vascular prominence Continue home Advair Started on DuoNeb every 4 H scheduled, methyl Pred 60 every 8 scheduled and azithromycin 500 mg IV x5 days Echo ordered -may not be able to adequately assess for pulmonary artery pressure due to habitus and require right-sided heart cath Pulmonology consulted Pericardial effusion/pericarditis Noted on CT chest however clinical picture does not fit pericarditis CTA chest: Small pericardial effusion and concern for pericarditis Echo ordered to rule in or rule out Treatment not initiated this time Cardiovascular: History of hypertension/hyperlipidemia Continue home lisinopril, metoprolol, simvastatin and aspirin DM 2 Hold home metformin and glimepiride Started on sliding scale insulin Obstructive sleep apnea Continue home CPAP when able Currently the patient is on BiPAP GERD Continue home omeprazole Chronic pain syndrome Continue home Tylenol and naproxen Hypomagnesemia Mag 1.7 Repleted -received 1 g FEN/GI: N.p.o. while on BiPAP DVT prophylaxis: Lovenox Code: Full Disposition: MedSurg telemetry (2) Pericarditis: (3) Pericardial effusion: (4) Hypomagnesemia: (5) Asthma: (6) Chronic fatigue syndrome: (7) Obesity: (8) GERD (gastroesophageal reflux disease): (9) HTN (hypertension): (10) Hearing difficulty: (11) Obstructive sleep apnea: (12) Dyslipidemia: (13) Type 2 diabetes mellitus, uncontrolled: History of Present Illness Chief Complaint: Dyspnea Primary Care Provider: Peter Mays MD 68-year-old male with history of just induced asthma, obstructive sleep apnea on CPAP (reports being compliant), hypertension, hyperlipidemia, DM 2, GERD, obesity, hearing difficulty presents with worsening shortness of breath x3 weeks. Reports dry developing dry cough and shortness of breath 3 weeks ago saw PCP and was prescribed steroids and antibiotics after he was given a breathing treatment. Per he improved after treatment but worsened again and has been gradually declining since. He used to be short of breath only on exertion and now is short of breath at rest as well which is why they came to the emergency room. Reports cough persistent and still dry. Associated with chills and headache. No chest pain. Denies pain when taking deep breath. Denies any fever, light headedness, chest pain, nausea, vomiting, abdominal pain, diarrhea, constipation, hematochezia, melena, hematuria, dysuria Reports smoking from age 14 to 21 to 1 pack/day but has quit about 45 years ago Allergies Allergy/AdvReac Type Severity Reaction Status Date / Time nickel Allergy Mild rash where Verified 05/02/19 16:45 it touches skin No Known Drug Allergies Allergy . Verified 05/02/19 16:45 Home Medications Home Medications Medication Instructions Recorded Confirmed Type acetaminophen 500 mg tablet 1,500 mg PO HS tab 01/18/19 05/02/19 History aspirin 81 mg tablet,delayed 81 mg PO QAM 01/18/19 05/02/19 History release lancets 33 gauge #100 ea 01/18/19 05/02/19 History naproxen sodium 220 mg tablet 220 mg PO HS PRN tab 01/18/19 05/02/19 History blood sugar diagnostic #10 ea 01/28/19 05/02/19 History metformin 1,000 mg tablet 1,000 mg PO BID #180 tab 01/28/19 05/02/19 Rx CPAP Machine #1 ea 01/29/19 05/02/19 Rx miscellaneous medical supply #1 ea 01/29/19 05/02/19 Rx glimepiride 4 mg tablet 6 mg PO QAM tab 04/10/19 05/02/19 History albuterol sulfate [Ventolin HFA] 1 puffs INH Q6H PRN 05/02/19 05/02/19 History fluticasone 100 mcg-salmeterol 50 1 puffs INH BID #60 ea 05/02/19 05/02/19 Rx mcg/dose blistr powdr for inhalation lisinopril 5 mg PO QAM 05/02/19 05/02/19 History metoprolol succinate 100 mg PO QAM 05/02/19 05/02/19 History omeprazole 20 mg PO QAM 05/02/19 05/02/19 History simvastatin 20 mg PO QAM 05/02/19 05/02/19 History Past Med/Surg History Medical History Asthma BMI 40.0-44.9, adult Chronic fatigue syndrome Dyslipidemia GERD (gastroesophageal reflux disease) Hearing difficulty HTN (hypertension) Hypertriglyceridemia Obesity Obstructive sleep apnea Periodic limb movement disorder Type 2 diabetes mellitus, uncontrolled Surgical History H/O toe surgery Previous back surgery Rotator cuff arthropathy S/P tonsillectomy and adenoidectomy Family History Mother Lung cancer Father Myocardial infarction Social History Preferred Language: Persian Communication Ability: Effective Vice President Underwriting Required: No Beliefs That Will Affect Care: None marital status: Current Living Situation: Spouse current occupational status: unemployed Other Information That Helps Us Care for You: No Feels Safe at Home: Yes Safety Concerns: Feels Safe At This Time Smoking Status: Former smoker Hx Alcohol Use: No Hx Substance Use: No Dental Care, Regularly: No Physical Activity Frequency Comment: limited by physical condition Review of Systems Review of Systems: As per HPI Physical Exam Physical Exam: General: In NAD, resting comfortably in bed with Bipap on Neuro: A&O x 4 Pulm: Occasional mild wheezing and rhonchi appreciated, diminished but equal breath sounds bilaterally CV: RRR, no m/r/g, no friction rub appreciated Abdomen:+BS, no TTP in all quadrants, non-distended, umbilical hernia LE: no LE edema, no calf TTP Results & Data Vital Signs (Past 12 Hours) Vital Signs Temp Pulse Resp BP Pulse Ox 05/02/19 21:01 83 22 124/73 97 05/02/19 20:31 78 21 111/61 96 05/02/19 20:00 88 26 H 133/76 98 05/02/19 18:50 78 24 97 05/02/19 18:31 80 29 H 126/71 95 05/02/19 18:01 79 20 97 05/02/19 18:00 79 25 H 136/76 97 05/02/19 17:30 86 24 146/71 H 98 05/02/19 17:00 82 23 121/75 97 05/02/19 16:35 83 31 H 139/77 98 05/02/19 16:34 82 32 H 05/02/19 16:01 83 29 H 97 05/02/19 16:00 84 27 H 143/80 H 97 05/02/19 15:54 96 05/02/19 15:44 87 32 H 131/78 97 05/02/19 15:31 89 30 H 94 05/02/19 15:15 36.8 C 96 H 28 H 163/84 H 96 Laboratory Results Abnormal lab results 05/02/19 05/02/19 05/02/19 Range/Units 15:43 15:43 16:42 RBC 4.25 L (4.7-6.1) M/uL Hgb 12.9 L (14.0-18.0) g/dL Hct 38.0 L (42-52) % RDW Std Deviation 47.0 H (36.4-46.3) fL Emery # (Auto) 0.95 H (0.11-0.59) K/uL D-Dimer 1740 H* (0-500) ug/L FEU Sodium 135 L (136-145) mmol/L Glucose 237 H (70-99) mg/dl Magnesium 1.7 L (1.8-2.4) mg/dl Albumin 3.1 L (3.4-5.0) gm/dl Globulin 4.5 H (2.5-4.0) gm/dl Albumin/Globulin Ratio 0.7 L (0.9-2) Lipase 51 L (73-393) U/L Diagnostic Findings XR chest 1V portable CLINICAL HISTORY: Atypical chest pain and shortness of breath COMPARISON STUDY: 05/02/2019 FINDINGS: The heart is enlarged. There is mild interstitial thickening, similar to the preceding study given differences in technique. Interstitial markings are likely accentuated due to the patient's large body habitus. There is no focal pulmonary consolidation. There are no pleural effusions.[ IMPRESSION: Cardiomegaly with stable chronic interstitial thickening/vascular prominence. No evidence of acute parenchymal consolidation CHEST CTA for PULMONARY ARTERIES CT DOSE: 1096.11 mGy.cm HISTORY: Shortness of breath. TECHNIQUE: Multiaxial CT images of the chest were performed following the intravenous administration of contrast to evaluate the pulmonary arteries. Maximal intensity projection images were also obtained. A dose lowering technique was utilized adhering to the principles of ALARA. COMPARISON STUDY: Chest CTA 09/26/2013. FINDINGS: Normal caliber thoracic aorta with no evidence for dissection. The heart is normal in size. No filling defects within the pulmonary arteries to suggest pulmonary embolus. Trace right pleural effusion. Small pericardial effusion. There appears a mild enhancement and thickening within the pericardial lining. This raises the possibility of a pericarditis. This is new from the prior study. The visualized liver, spleen, and adrenal glands are unremarkable. Slight increase in size in the mildly enlarged bilateral hilar lymph nodes. Dominant right hilar lymph node measures 19 x 12 mm. Mediastinal lymph nodes are within normal limits. No suspicious lytic are blastic osseous lesions. Mild narrowing and mild bronchial wall thickening within the central airways. No focal lung consolidations to suggest pneumonia. IMPRESSION: 1. No evidence for pulmonary embolus. 2. Small pericardial effusion. There appears to be mild enhancement and thickening within the pericardial lining. This raises the possibility of a pericarditis. This is new from the prior study. 3. Mild bronchial wall thickening and mild narrowing within the central bronchi. This may represent a nonspecific bronchitis. 4. Mild bilateral hilar lymphadenopathy. This has slightly progressed. 5. Trace right pleural effusion. Code Status & VTE Plan Code Status Full VTE Prophylaxis Plan VTE Prophylaxis will be ordered: Yes Supervising Physician Co-Signing Physician Notes I personally interviewed and examined the patient. I agree with history of present illness and physical exam mentioned above, I also performed my own history taking and examination. Past medical history and review of system has been obtained by myself I reviewed all pertinent labs and studies Reviewed current medications I discussed and formulated of the assessment and plan mentioned above. Please refer to the Summary mentioned below. 68-year-old man with past medical history of morbid obesity, obstructive sleep apnea on CPAP, essential hypertension, dyslipidemia, diabetes mellitus on oral hypoglycemic, GERD and exercise-induced asthma as per family Presented to the hospital with 4 weeks of progressive shortness of breath. They said that he went to his primary care physician and was giving an antibiotic and steroids that helped him and when he started to improve he quickly declined again and relapsed as soon as he finished antibiotics and the steroids. CT angiogram to rule out pulmonary embolism showed no pulmonary embolism but showed questionable small pericardial effusion and pericarditis. He denies any chest pain or chest discomfort, his symptoms are more suggestive of pulmonary disease giving his progressive exertional shortness of breath. Although not read by the radiologist but looking at his the films of his CT scan showed some scarring and chronic fibrosis possible early atelectasis, admit patient to telemetry use BiPAP and oxygen as needed, will treat patient for COPD exacerbation/asthma exacerbation, consult narcotics and vice detective. Also will use azithromycin for the anti-inflammatory benefit and for possible bacterial bronchitis. As far as his suggestive pericarditis seen on the CT scan as there was some enhancement in the pericardium, will order sed rate and CRP, will not initiate any therapy right now for pericarditis since his EKG was not suggestive of pericarditis either neither the clinical picture. We will order 2D echo, due to his body habitus I do not think 2D echo will show his pulmonary pressure, in this case we might have to do right-sided heart cath, a consult for cutting machine fixer has been placed. My sense is we need to rule out severe pulmonary hypertension/pulmonary fibrosis as well as any underlying cardiac disease. General Appearance: Morbidly obese, appears to be in moderate distress Eyes: normal Sclerae, extraocular muscle intact ENT: hearing grossly normal Neck: supple Respiratory/Chest: Decreased air entry bilaterally, decreased chest wall expansion, bilateral basal crackles Cardiovascular: regular rate, rhythm, no murmur Abdomen: non tender, soft, no masses Extremities: no edema musculoskeletal: no significant swelling or inflammation in any joint Neurologic/Psychiatric: Awake alert oriented times place and person moves all extremities sensation intact cranial nerves II-12 appear to be intact Skin: normal color, warm/dry, no rash Galen Wilder MD, [facility] Resident Activity Tracking Resident Involvement: Resident Care Provided Care Provided: Adult Hospital Medicine (1) Dyspnea Dyspnea type: unspecified Qualified Code(s): R06.00 - Dyspnea, unspecified (2) Pericarditis Chronicity: unspecified Pericarditis type: unspecified type Qualified Code(s): I31.9 - Disease of pericardium, unspecified (3) Type 2 diabetes mellitus, uncontrolled Glycemic state: with hyperglycemia Qualified Code(s): E11.65 - Type 2 diabetes mellitus with hyperglycemia
[2019-05-02] MEDS ORDERED: methylPREDNISolone 125 MG/2 ML VIAL IV SCH (22:10)
[2019-05-02] MEDS ORDERED: ALBUTEROL HFA 8 GM INHALER INH PRN (22:10)
[2019-05-02] MEDS ORDERED: ALUMINUM/MAGNESIUM SUSP 30 ML UDC PO PRN (22:10)
[2019-05-02] MEDS ORDERED: POLYETHYLENE (MIRALAX) 17 GM PACK PO PRN (22:10)
[2019-05-02] MEDS ORDERED: GLUCAGON FOR INJ 1 MG VIAL IM PRN (22:30)
[2019-05-02] MEDS ORDERED: CARBOHYDRATES FOR HYPOGLYCEMIA PO PRN (22:30)
[2019-05-02] MEDS ORDERED: GLUCOSE 10 TABS/TUBE PO PRN (22:30)
[2019-05-02] MEDS ORDERED: GLUCOSE 40% GEL 15 GM TUBE PO PRN (22:30)
[2019-05-02] MEDS ORDERED: DEXTROSE 50% 50 ML SYRINGE IV PRN (22:30)
[2019-05-02] MEDS: methylPREDNISolone 60 MG in SYRINGE 0 ML IV SCH (22:46)
[2019-05-02] MEDS: ENOXAPARIN INJ 30 MG/0.3 ML SYR SQ SCH (22:46)
[2019-05-02] MEDS: FLUTICASONE/SALMETEROL 100/50 (ADVAIR) 14 PUFF/1 INHALER INH SCH (22:47)
--- NOTE | 2019-05-02 22:47 | Billing Data ---
Coding Level of Care Code 90565 Initial Inpt Care Lvl 3
[2019-05-02] MEDS: ACETAMINOPHEN 500 MG TAB PO SCH (23:12)
[2019-05-02] MEDS: ALBUT/IPRATROP 3MG/0.5MG NEB 3 ML VIAL NEB SCH (23:15)
[2019-05-02] MEDS: INSULIN ASPART 100 UNITS/ML 3 ML PEN SC SCH (23:43)
[2019-05-03] MEDS: ALBUT/IPRATROP 3MG/0.5MG NEB 3 ML VIAL NEB SCH ×6 (03:47→23:08)
[2019-05-03 03:59] LABS: Basophils # (auto) 0.01 K/uL (0-0.2); Basophils % (auto) 0.1 %; Eosinophils # (auto) 0.01 K/uL (0-0.5); Eosinophils % (auto) 0.1 %; Hematocrit (blood only) 38.2 % (42-52); Hemoglobin 12.8 g/dL (14.0-18.0); Immature Granulocytes # (auto) 0.02 K/uL (0.00-0.02); Immature Granulocytes % (auto) 0.3 %; Lymphocytes % (auto) 8.9 %; Mean Corpuscular Hemoglobin 30.5 pg (25-34); Mean Corpuscular Hgb Conc 33.5 g/dL (32-36); Mean Platelet Volume 9.8 fL (7.4-10.4); Monocytes # (auto) 0.24 K/uL (0.11-0.59); Monocytes % (auto) 3.1 %; Neutrophils # (auto) 6.86 K/uL (1.4-6.5); Neutrophils % (auto) 87.5 %; Platelet Count 163 K/uL (130-400); RDW Coefficient of Variation 14.5 % (11.5-14.5); RDW Standard Deviation 48.5 fL (36.4-46.3); White Blood Count 7.84 K/uL (4.8-10.8)
[2019-05-03 04:28] LABS: BUN Creatinine Ratio 17.9 (10-20); Calcium 8.9 mg/dl (8.5-10.1); Creatinine Clr Calc Pharmacy 105.6 ml/min; Est GFR (Non-African American) 89.7; Potassium 4.7 mmol/L (3.5-5.1)
[2019-05-03] MEDS ORDERED: INSULIN ASPART 100 UNITS/ML 3 ML PEN SC SCH ×4 (06:17→07:30)
[2019-05-03] MEDS: methylPREDNISolone 60 MG in SYRINGE 0 ML IV SCH ×3 (06:27→21:49)
[2019-05-03] MEDS: INSULIN ASPART 100 UNITS/ML 3 ML PEN SC SCH ×4 (06:32→21:15)
--- NOTE | 2019-05-03 07:46 | Pulmonary Consultation ---
Date of Consultation May 03, 2019 Assessment & Plan (1) Dyspnea: Impression: 68-year-old male with reported history of asthma although I do not have PFTs available to review in his clinical history is suggestive of alternative etiologies admitted with increasing shortness of breath and cough. His cough may be related to upper airway cough syndrome as he does endorse some postnasal drip and has frequent throat clearing. With regards to his shortness of breath, not sure we can hang all of his symptoms on asthma as his history is somewhat discordant. Recommendations: 1. Cough: We will discontinue the patient's lisinopril and replace it with metoprolol. Aggressive treatment for upper airway cough syndrome with Benadryl, Sudafed, and Flonase. Consideration for saline sinus rinse may be appropriate. 2. Dyspnea on exertion: Etiology unclear. Unclear if he is responded to a azithromycin and steroids with bronchodilators at this point time so I think it is reasonable to continue. He did not have evidence of eosinophilia. He does require outpatient pulmonary function testing. Would not try and perform now as there is little utility in the acute setting. He does have significant pericardial thickening and etiology such as constrictive or restrictive pericarditis would be in the differential. An echocardiogram is pending. I think cardiac etiology is also need to be evaluated and allergy consultation with consideration for stress testing once he is stable. Echocardiogram is pending. Doubt pulmonary hypertension as an etiology for his complaints is that would not typically cause pericardial thickening. If he does have pulmonary hypertension it is likely WHO class II or III and I do not think right heart catheterization would be warranted for pulmonary hypertension although it may be warranted to evaluate for pericardial disease. 3. Sleep disordered breathing: Continue CPAP. The patient will bring in his home machine for use here in the hospital. 4. Obesity: Weight loss recommended. 5. Wean oxygen as tolerated. Oxygen saturations of 88 to 90% should be targeted. His resting CO2 level on think obesity hypoventilation or hypercarbic respiratory failure is playing a role. 6. Patient can likely be moved to a general medical floor. Will defer to hospitalist. We will follow with you. Feel free to contact us with questions or concerns. Dyspnea type: unspecified Qualified Code(s): R06.00 - Dyspnea, unspecified (2) Asthma: (3) Abnormal CT scan of lung: (4) Cough: History of Present Illness Attending Physician: Nhan Alba MD History of Present Illness Asked by hospitalist service to evaluate this patient with shortness of breath and asthma. History is obtained from review the electronic medical record and interview the patient at bedside as well as his . Patient is a 68-year-old male with a reported history of asthma diagnosed 20 years ago. He cannot recall if he is ever had pulmonary function testing performed previously. He was given an Advair inhaler to use on an as needed he typically needed if few times a year. He does have sleep disordered breathing as well as hypertension and is on lisinopril in the outpatient setting. The patient was doing well up until about 4 weeks ago. At that time he got a new CPAP unit. He states that since that time he has had issues with cough and shortness of breath. He does complain of some chest tightness across his anterior chest especially associated with exertion such as lifting objects. He coughs with talking or if he bends over to coal picker something off the floor. His cough is not been productive. He has not had any fevers chills or night sweats. No syncope or presyncope. He saw his primary care provider and was provided a prescription for antibiotics and prednisone which were shortly beneficial. His has noted some wheezing associated with exertion but none at rest. His inhalers have not offered him any benefit. His symptoms progressed the point that he was seen in the emergency room. He was placed on BiPAP for increased work of breathing. D-dimer was elevated but CT angiogram demonstrated no filling defects. There was circumferential pericardial thickening which was new compared to prior CT scan. No distinct airspace opacity or air trapping identified. He was treated with azithromycin and Solu-Medrol as well as steroids and admitted to telemetry. This morning the patient states his breathing is better. 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 He has a less than [id number] history of tobacco abuse and quit smoking over 30 years ago. there is a family history of lung disease. His mother due to emphysema and lung cancer. He also has a strong family history of cardiac disease with 7 uncles having early myocardial infarctions. He cannot recall when his last stress test was performed. He does endorse postnasal drip but no significant reflux. He is taking an CLAIRE inhibitor which she is been on for quite some time. Allergies Allergy/AdvReac Type Severity Reaction Status Date / Time nickel Allergy Mild rash where Verified 05/02/19 16:45 it touches skin No Known Drug Allergies Allergy . Verified 05/02/19 16:45 Home Medications Home Medications Medication Instructions Recorded Confirmed Type acetaminophen 500 mg tablet 1,500 mg PO HS tab 01/18/19 05/02/19 History aspirin 81 mg tablet,delayed 81 mg PO QAM 01/18/19 05/02/19 History release lancets 33 gauge #100 ea 01/18/19 05/02/19 History naproxen sodium 220 mg tablet 220 mg PO HS PRN tab 01/18/19 05/02/19 History blood sugar diagnostic #10 ea 01/28/19 05/02/19 History metformin 1,000 mg tablet 1,000 mg PO BID #180 tab 01/28/19 05/02/19 Rx CPAP Machine #1 ea 01/29/19 05/02/19 Rx miscellaneous medical supply #1 ea 01/29/19 05/02/19 Rx glimepiride 4 mg tablet 6 mg PO QAM tab 04/10/19 05/02/19 History albuterol sulfate [Ventolin HFA] 1 puffs INH Q6H PRN 05/02/19 05/02/19 History fluticasone 100 mcg-salmeterol 50 1 puffs INH BID #60 ea 05/02/19 05/02/19 Rx mcg/dose blistr powdr for inhalation lisinopril 5 mg PO QAM 05/02/19 05/02/19 History metoprolol succinate 100 mg PO QAM 05/02/19 05/02/19 History omeprazole 20 mg PO QAM 05/02/19 05/02/19 History simvastatin 20 mg PO QAM 05/02/19 05/02/19 History Patient History Medical History Asthma BMI 40.0-44.9, adult Chronic fatigue syndrome Dyslipidemia GERD (gastroesophageal reflux disease) Hearing difficulty HTN (hypertension) Hypertriglyceridemia Obesity Obstructive sleep apnea Periodic limb movement disorder Type 2 diabetes mellitus, uncontrolled Surgical History H/O toe surgery Previous back surgery Rotator cuff arthropathy S/P tonsillectomy and adenoidectomy Family History Mother Lung cancer Father Myocardial infarction Social History Preferred Language: Turkmen Communication Ability: Effective Medical Associate Required: No Beliefs That Will Affect Care: None marital status: Current Living Situation: Spouse current occupational status: unemployed Other Information That Helps Us Care for You: No Feels Safe at Home: Yes Safety Concerns: Feels Safe At This Time Smoking Status: Former smoker Hx Alcohol Use: No Hx Substance Use: No Dental Care, Regularly: No Physical Activity Frequency Comment: limited by physical condition Review of Systems Review of Systems: See HPI. No additions or deletions Physical Exam Constitutional: WD/WN, vitals as above Neck: trachea midline, no thyromegaly Respiratory: normal respiratory effort, lungs clear to auscultation Cardiovascular: RRR, no murmur, no edema Gastrointestinal (Abdomen): normal bowel sounds, soft, nontender, no hepatosplenomegaly Musculoskeletal: Extremities: extremities normal to inspection Skin: no rashes, warm and dry Neurologic: Nonfocal exam Lymphatic: no cervical lymphadenopathy Results & Data Vital Signs (Past 12 Hours) Vital Signs Temp Pulse Pulse Resp BP BP Pulse Ox 05/03/19 07:03 20 99 05/03/19 07:02 71 20 99 05/03/19 07:00 35.9 C L 81 28 H 100 05/03/19 06:53 77 05/03/19 04:10 76 24 99 05/03/19 04:00 36.7 C 81 18 112/59 L 99 05/03/19 03:49 70 30 H 98 05/03/19 00:42 36.5 C 71 20 121/77 98 05/02/19 23:17 69 19 99 05/02/19 23:15 69 19 99 05/02/19 22:10 36.5 C 74 74 20 130/74 97 05/02/19 22:07 84 20 97 05/02/19 22:03 77 13 05/02/19 21:30 76 22 126/71 96 05/02/19 21:02 80 26 H 97 05/02/19 21:01 83 22 124/73 97 05/02/19 20:31 78 21 111/61 96 05/02/19 20:00 88 26 H 133/76 98 Laboratory Results 05/03/19 03:43 05/03/19 03:[address] chest independently reviewed CHEST CTA for PULMONARY ARTERIES CT DOSE: 1096.11 mGy.cm HISTORY: Shortness of breath. TECHNIQUE: Multiaxial CT images of the chest were performed following the intravenous administration of contrast to evaluate the pulmonary arteries. Maximal intensity projection images were also obtained. A dose lowering technique was utilized adhering to the principles of ALARA. COMPARISON STUDY: Chest CTA 09/26/2013. FINDINGS: Normal caliber thoracic aorta with no evidence for dissection. The heart is normal in size. No filling defects within the pulmonary arteries to suggest pulmonary embolus. Trace right pleural effusion. Small pericardial effusion. There appears a mild enhancement and thickening within the pericardial lining. This raises the possibility of a pericarditis. This is new from the prior study. The visualized liver, spleen, and adrenal glands are unremarkable. Slight increase in size in the mildly enlarged bilateral hilar lymph nodes. Dominant right hilar lymph node measures 19 x 12 mm. Mediastinal lymph nodes are within normal limits. No suspicious lytic are blastic osseous lesions. Mild narrowing and mild bronchial wall thickening within the central airways. No focal lung consolidations to suggest pneumonia. IMPRESSION: 1. No evidence for pulmonary embolus. 2. Small pericardial effusion. There appears to be mild enhancement and thickening within the pericardial lining. This raises the possibility of a pericarditis. This is new from the prior study. 3. Mild bronchial wall thickening and mild narrowing within the central bronchi. This may represent a nonspecific bronchitis. 4. Mild bilateral hilar lymphadenopathy. This has slightly progressed. 5. Trace right pleural effusion. PG Care Time/CCT Total # of Minutes Spent Total Time Spent with Patient: Total time spent is greater than 50% in coordinat ion of care (as documented) at patient's floor/unit and/or counseling patient:
[2019-05-03] MEDS: FLUTICASONE/SALMETEROL 100/50 (ADVAIR) 14 PUFF/1 INHALER INH SCH ×2 (08:00→20:49)
[2019-05-03] MEDS: PANTOprazole 40 MG TAB PO SCH (08:01)
[2019-05-03] MEDS: ASPIRIN 81 MG ECTAB PO SCH (08:01)
[2019-05-03] MEDS: SIMVASTATIN 20 MG TAB PO SCH (08:01)
[2019-05-03] MEDS: METOPROLOL SUCC 50MG EXT REL TAB PO SCH ×2 (08:01→08:17)
[2019-05-03] MEDS: AZITHROMYCIN 250 MG TAB PO SCH (08:17)
[2019-05-03] MEDS: PSEUDOEPHEDRINE HCL 30 MG TAB PO SCH ×3 (08:20→20:48)
[2019-05-03] MEDS: FLUTICASONE PROPIONATE NA SPR 16 GM BTL SCH ×2 (08:21→20:49)
[2019-05-03] MEDS ORDERED: ACETAMINOPHEN 325 MG TAB PO PRN (08:24)
[2019-05-03] MEDS ORDERED: PHARMACY GLYCEMIC MGMT CONSULT SCH (08:24)
[2019-05-03] MEDS ORDERED: SEVERE STRESS LEVEL ONE (08:26)
[2019-05-03] MEDS ORDERED: INSULIN PROTOCOL GOAL RANGE ONE (08:26)
[2019-05-03] MEDS ORDERED: INSULIN GLARGINE SOLOSTAR 100 UNITS/ML 3 ML PEN SC ONE (08:30)
[2019-05-03] MEDS ORDERED: NovoLIN-R BOLUS FROM BAG IV ONE (08:44)
[2019-05-03] MEDS ORDERED: INSULIN REGULAR 250 UNITS in SODIUM CHLORIDE 0.9% 247.5 ML IV SCH (08:45)
--- NOTE | 2019-05-03 08:46 | Pharmacy Report ---
Pharmacy Glycemic Short Note 2 - Date of Service May 03, 2019 - Glycemic Short BSG Results (Last 24 hours): 05/02/19 05/02/19 05/03/19 15:43 23:40 03:43 Glucose 237 H 289 H POC Glucose 197 H 05/03/19 05/03/19 05/03/19 06:06 06:07 08:07 Glucose POC Glucose 332 H* 303 H* 299 H OUTPATIENT ANTIDIABETIC REGIMEN: * Glimepiride 6mg PO daily in the AM * Metformin 1gm PO BID * A1c ? ASSESSMENT: * Type 2 diabetic managed with oral hypoglycemics prior to admission, level of glycemic control prior to admission uncertain - A1c has been added to today's labs * Admitted to ICU for cough and worsening SOB * Currently receiving high dose IV steroids (Solu-Medrol 60mg IV Q 8 hours) * Fasting BSG low 300's this AM and patient is now ordered a diet. * Will initiate insulin drip to quickly and safely gain control of hyperglycemia. Will also initiate basal insulin based upon adjusted body weight (due to BMI > 40) and severe stress level. If BSGs well controlled later today, we may be able to discontinue the insulin drip and proceed to manage with basal/bolus SQ regimen. PLAN FOR INPATIENT GLYCEMIC CONTROL: * Hold outpatient oral diabetes medications (metformin + glimepiride) * Basal insulin * Lantus 40 units SQ x 1 now, then 22 units SQ BID - may be given while on insulin drip * Insulin drip: per severe stress / high stress protocol, goal range 110- 180mg/dL * May discontinue insulin drip if 2 consecutive BSGs ( by 1 hr) less than 180 * Bolus insulin * Nutritional / Prandial insulin per carb ratio of 1 unit per 6 grams CHO consumed * If insulin drip discontinued would recommend the following as well: * NovoLog per scale ACHS or Q6hrs while NPO * Goal Range: Low 110 mg/dL - High 140 mg/dL * Correction Factor: 18 mg/dL/unit PLAN FOR DISCHARGE: * to be determined
[2019-05-03] MEDS: HydrALAZINE 10 MG TAB PO SCH ×3 (08:47→20:49)
[2019-05-03] MEDS ORDERED: METOPROLOL TARTRATE 25 MG TAB PO SCH (09:00)
[2019-05-03] MEDS ORDERED: AZITHROMYCIN 500 MG in DEXTROSE 5% 250 ML IV SCH (09:00)
[2019-05-03] MEDS ORDERED: LISINOPRIL 5 MG TAB PO SCH (09:00)
[2019-05-03 10:13] LABS: Estimated Average Glucose 275 mg/dl; Hemoglobin A1C 11.2 % (4.5-5.6)
[2019-05-03 15:46] LABS: Albumin Globulin Ratio 0.7 (0.9-2); Albumin Level 3.2 gm/dl (3.4-5.0); BUN Creatinine Ratio 17.4 (10-20); Calcium 9.5 mg/dl (8.5-10.1); Creatinine Clr Calc Pharmacy 73.2 ml/min; Est GFR (African American) 69.3; Est GFR (Non-African American) 59.8; Globulin 4.7 gm/dl (2.5-4.0); Magnesium 2.2 mg/dl (1.8-2.4); Phosphorus 4.1 mg/dl (2.5-4.9); Potassium 4.3 mmol/L (3.5-5.1); Total Protein 7.9 gm/dl (6.4-8.2)
[2019-05-03 16:05] LABS: Beta-Hydroxybutyrate 1.81 mg/dl (0.2-2.81)
[2019-05-03] MEDS ORDERED: COUGH DROP (SUGAR FREE) LOZ 24 LOZ/1 BOX BUCCAL ONE (18:01)
--- NOTE | 2019-05-03 20:41 | Hospitalist Progress Note ---
Date of Service May 03, 2019 Assessment & Plan (1) Cough: Suspect subacute bronchitis due to allergy from [place] versus new CPAP machine. Agree with pulmonology recommendation of allergy testing after discharge. Possibly exacerbated by lisinopril use and agree with stopping this. Appreciate other pulmonology recommendations with Benadryl, Sudafed, and Flonase. (2) Dyspnea: On exertion. Suspect some obesity hypoventilation causing restrictive lung disease in the setting of subacute bronchitis. Echo unremarkable for pericarditis and only small pericardial effusion which I do not suspect is having a big effect on his dyspnea. (3) Pericarditis: Pericardial thickening on CT scan not appreciated on echocardiogram. Unfortunately we do not have access to cardiac MRI at this facility. However as above I believe his symptoms are much more related to bronchitis rather than pericarditis. (4) Hypomagnesemia: Replete as necessary (5) Asthma: Mild intermittent underlying asthma currently with relatively severe exacerbation considering he has any needed albuterol inhaler before in the past. Will need retesting in 4 to 6 weeks with PFTs. (6) Obesity: Weight loss discussed with diet and exercise changes. (7) GERD (gastroesophageal reflux disease): (8) HTN (hypertension): Discontinuing lisinopril as above. We will continue to monitor blood pressure (9) Obstructive sleep apnea: Continue with CPAP at night. Patient to bring in an equipment. (10) Dyslipidemia: Continue simvastatin. (11) Type 2 diabetes mellitus, uncontrolled: Steroid-induced hyperglycemia. Will be placed on insulin drip to help control this. Discussed with glycemic pharmacist and appreciate ongoing management of this. (12) DVT prophylaxis: Continue Lovenox. Subjective Revisited history with patient. Reports 1 month of progressive worsening dyspnea with dry cough. Initial illness progressed over a number of days and possibly related to having a new CPAP or [place] being [place]. He initially improved with antibiotics and steroids given by his primary care provider. However after stopping these became progressively worse to the point where yesterday he tried to go see his doctor but was recommended to go to the emergency room. Since coming in he has symptomatically improved with IV steroids. Notices some improvement with DuoNeb's. He denies any chest pain, orthopnea, PND, claudication, palpitations. He does admit to a history of heartburn. He reports belching after drinking xu guilherme which he does every day. However no change in his symptoms over the last 4 weeks. He reports compliance with omeprazole daily. Review of Systems Review of Systems: All systems reviewed & are unremarkable except as noted in HPI & below Physical Exam Constitutional: well developed, + ill appearing and + morbidly obese; + not well nourished and no acute distress Eyes: + anicteric sclerae; normal pupil size ENMT: external ear and nose normal, oropharynx normal Neck: trachea midline, no thyromegaly + short neck and + thick neck Respiratory: normal respiratory effort and + cough (Frequent dry cough); no respiratory distress, no labored breathing and does not use accessory muscles Auscultation: lungs clear to auscultation bilaterally; no crackles, no rales, no rhonchi and no wheezes Cardiovascular: RRR, no murmur, no edema Gastrointestinal (Abdomen): normal bowel sounds, soft, nontender, no hepatosplenomegaly Musculoskeletal: no cyanosis or clubbing, extremities motor strength 5/5 Skin: no rashes, warm and dry Neurologic: moves all extremities and awake; no focal motor deficits and not confused Motor/Sensory: no tremor, no pronator drift and no sensory deficit Psychiatric: A+Ox3, euthymic affect Lymphatic: no cervical lymphadenopathy Results & Data Vital Signs (Past 12 Hours) Vital Signs Temp Pulse Pulse Pulse Resp BP Pulse Ox 05/03/19 19:07 97.7 F 81 18 148/78 H 98 05/03/19 19:06 82 16 98 05/03/19 15:41 97.3 F L 84 20 139/75 95 05/03/19 15:33 68 20 96 05/03/19 12:00 98.6 F 79 22 139/78 94 05/03/19 11:15 76 19 98 05/03/19 10:49 97.5 F L 74 21 148/80 H 93 05/03/19 10:00 77 9 L 93 05/03/19 09:00 87 20 93 PG Care Time/CCT Total # of Minutes Spent Total Time Spent with Patient: Total time spent is greater than 50% in coordination of care (as documented) at patient's floor/unit and/or counseling patient: (1) Dyspnea Dyspnea type: unspecified Qualified Code(s): R06.00 - Dyspnea, unspecified (2) Pericarditis Chronicity: unspecified Pericarditis type: unspecified type Qualified Cod e(s): I31.9 - Disease of pericardium, unspecified (3) Type 2 diabetes mellitus, uncontrolled Glycemic state: with hyperglycemia Qualified Code(s): E11.65 - Type 2 diabetes mellitus with hyperglycemia (4) HTN (hypertension) Hypertension type: essential hypertension Qualified Code(s): I10 - Essential (primary) hypertension (5) Obesity Obesity type: due to excess calories Obesity classification: adult class 3 (BMI >= 40) Serious obesity comorbidity presence: with serious comorbidity Body mass index: unspecified BMI Qualified Code(s): E66.01 - Morbid (severe) obesity due to excess calories (6) Asthma Asthma severity: mild Asthma persistence: intermittent Asthma complication type: with acute exacerbation Qualified Code(s): J45.21 - Mild intermittent asthma with (acute) exacerbation
[2019-05-03] MEDS: ACETAMINOPHEN 500 MG TAB PO SCH (20:48)
[2019-05-03] MEDS: INSULIN GLARGINE SOLOSTAR 100 UNITS/ML 3 ML PEN SC SCH (21:47)
[2019-05-03] MEDS: ENOXAPARIN INJ 30 MG/0.3 ML SYR SQ SCH (21:48)
[2019-05-03] MEDS ORDERED: COUGH DROP (SUGAR FREE) LOZ 24 LOZ/1 BOX BUCCAL PRN (21:56)
[2019-05-04] MEDS: INSULIN ASPART 100 UNITS/ML 3 ML PEN SC SCH ×6 (00:13→20:55)
[2019-05-04] MEDS: ALBUT/IPRATROP 3MG/0.5MG NEB 3 ML VIAL NEB SCH ×6 (03:28→23:16)
[2019-05-04] MEDS: methylPREDNISolone 60 MG in SYRINGE 0 ML IV SCH ×3 (06:30→23:24)
[2019-05-04 07:11] LABS: Immature Granulocytes # (auto) 0.05 K/uL (0.00-0.02); Immature Granulocytes % (auto) 0.4 %; Lymphocytes # (auto) 0.77 K/uL (1.2-3.4); Lymphocytes % (auto) 5.9 %; Mean Corpuscular Hemoglobin 30.6 pg (25-34); Mean Corpuscular Hgb Conc 34.2 g/dL (32-36); Mean Corpuscular Volume 89.4 fL (80-100); Mean Platelet Volume 10.1 fL (7.4-10.4); Monocytes # (auto) 0.79 K/uL (0.11-0.59); Monocytes % (auto) 6.1 %; Neutrophils # (auto) 11.35 K/uL (1.4-6.5); Neutrophils % (auto) 87.6 %; Platelet Count 160 K/uL (130-400); RDW Coefficient of Variation 14.3 % (11.5-14.5); RDW Standard Deviation 47.1 fL (36.4-46.3); Red Blood Count 4.25 M/uL (4.7-6.1); White Blood Count 12.96 K/uL (4.8-10.8)
[2019-05-04 07:48] LABS: Albumin Level 3.1 gm/dl (3.4-5.0); BUN Creatinine Ratio 19.7 (10-20); Calcium 9.4 mg/dl (8.5-10.1); Creatinine Clr Calc Pharmacy 85.6 ml/min; Est GFR (African American) 83.8; Est GFR (Non-African American) 72.3; Potassium 4.2 mmol/L (3.5-5.1)
[2019-05-04 07:50] LABS: Albumin Globulin Ratio 0.7 (0.9-2); Bilirubin,Total 0.7 mg/dl (0.2-1); Globulin 4.4 gm/dl (2.5-4.0); Total Protein 7.5 gm/dl (6.4-8.2)
[2019-05-04] MEDS: FLUTICASONE/SALMETEROL 100/50 (ADVAIR) 14 PUFF/1 INHALER INH SCH ×2 (08:47→20:53)
[2019-05-04] MEDS: HydrALAZINE 10 MG TAB PO SCH ×3 (08:49→20:53)
[2019-05-04] MEDS: PSEUDOEPHEDRINE HCL 30 MG TAB PO SCH ×3 (08:49→20:53)
[2019-05-04] MEDS: METOPROLOL SUCC 50MG EXT REL TAB PO SCH (08:49)
[2019-05-04] MEDS: AZITHROMYCIN 250 MG TAB PO SCH (08:49)
[2019-05-04] MEDS: FLUTICASONE PROPIONATE NA SPR 16 GM BTL SCH ×2 (08:50→20:53)
[2019-05-04] MEDS: SIMVASTATIN 20 MG TAB PO SCH (08:50)
[2019-05-04] MEDS: PANTOprazole 40 MG TAB PO SCH (08:50)
[2019-05-04] MEDS: INSULIN GLARGINE SOLOSTAR 100 UNITS/ML 3 ML PEN SC SCH ×2 (08:51→20:55)
[2019-05-04] MEDS: ASPIRIN 81 MG ECTAB PO SCH (08:51)
[2019-05-04] MEDS ORDERED: BENZONATATE 100 MG CAPSULE PO PRN (10:01)
[2019-05-04] MEDS ORDERED: SODIUM CHLORIDE 0.65% NA SOLN 45 ML (OCEAN) PRN (10:01)
--- NOTE | 2019-05-04 10:03 | Pulmonology Progress Note ---
Date of Service May 04, 2019 Assessment & Plan (1) Dyspnea: Impression: 68-year-old male with reported history of asthma (no PFTs available) admitted with increasing shortness of breath and cough. His cough may be related to upper airway cough syndrome as he does endorse some postnasal drip and has frequent throat clearing. With regards to his shortness of breath, not sure we can hang all of his symptoms on asthma as his history is somewhat discordant. CT scan did demonstrate pericardial thickening of unclear significance. Recommendations: 1. Cough: Off lisinopril. Continue aggressive treatment for upper airway cough syndrome with Benadryl, Sudafed, and Flonase. Consideration for saline sinus rinse as an outpatient may be appropriate. Vocal cord dysfunction would be on the differential as well. He will require outpatient PFTs and pulmonary follow- up. Trial of tessalon. 2. Dyspnea on exertion: Etiology unclear. Better today. Would recommend a additional 3-day burst of prednisone then discontinue. Can continue inhalers for now. She should have a cardiac stress test performed given a positive family history. Restrictive/constrictive pericardial disease remain on the differential. Would not expect these to improve with steroids or bronchodilators. 3. Sleep disordered breathing: Continue CPAP. The patient will bring in his home machine for use here in the hospital. 4. Obesity: Weight loss recommended. 5. Wean oxygen as tolerated. Oxygen saturations of 88 to 90% should be targeted. His resting CO2 level is okay and do not believe he has OHS 6. If the patient continues to do well, he may be eligible to be dismissed from the hospital. He should follow-up in the outpatient pulmonary setting for complete PFTs. We will follow with you. Feel free to contact us with questions or concerns. Dyspnea type: unspecified Qualified Code(s): R06.00 - Dyspnea, unspecified (2) Asthma: Asthma severity: mild Asthma persistence: intermittent Asthma complication type: with acute exacerbation Qualified Code(s): J45.21 - Mild intermittent asthma with (acute) exacerbation (3) Abnormal CT scan of lung: (4) Cough: Subjective Patient seen and examined. Family at bedside. He reports that he did not sleep well last night largely due to environmental issues. Shortness of breath is better and he was able to walk around the hospital floor without significant dyspnea. He reports that he continues to experience coughing with deep breathing or exertion. No chest pain or lower extremity edema. Physical Exam Constitutional: WD/WN, vitals as above Neck: trachea midline, no thyromegaly Respiratory: normal respiratory effort, lungs clear to auscultation Cardiovascular: RRR, no murmur, no edema Gastrointestinal (Abdomen): normal bowel sounds, soft, nontender, no hepatosplenomegaly Musculoskeletal: Extremities: extremities normal to inspection Skin: no rashes, warm and dry Lymphatic: no cervical lymphadenopathy Results & Data Vital Signs (Past 12 Hours) Vital Signs Temp Pulse Pulse Resp BP Pulse Ox 05/04/19 07:11 36.6 C 86 20 145/77 H 98 05/04/19 07:04 86 18 97 05/04/19 04:42 36.5 C 81 20 136/80 94 05/04/19 03:28 88 18 97 05/04/19 00:00 82 05/03/19 23:49 36.4 C L 80 20 134/76 98 05/03/19 23:08 84 16 97 Laboratory Results 05/04/19 06:43 05/04/19 06:43 Diagnostic Findings Echocardiogram reviewed. EF of 60-70 with grade 1 diastolic dysfunction. LVH noted. No significant pericardial effusion. PG Care Time/CCT Total # of Minutes Spent Total Time Spent with Patient: Total time spent is greater than 50% in coordination of care (as documented) at patient's floor/unit and/or counseling patient:
[2019-05-04] MEDS ORDERED: INSULIN HUMAN REGULAR IV BOLUS 3 UNITS in SYRINGE 0 ML IV ONE (12:30)
[2019-05-04] MEDS ORDERED: INSULIN REGULAR 250 UNITS in SODIUM CHLORIDE 0.9% 247.5 ML IV SCH (12:45)
--- NOTE | 2019-05-04 13:14 | Pharmacy Report ---
Pharmacy Glycemic Short Note 2 - Date of Service May 04, 2019 - Glycemic Short BSG Results (Last 24 hours): 05/03/19 05/03/19 05/03/19 13:39 14:34 15:05 Glucose 365 H* POC Glucose 424 H* 379 H* 05/03/19 05/03/19 05/03/19 15:43 17:50 19:35 Glucose POC Glucose 308 H* 196 H 127 H 05/03/19 05/03/19 05/04/19 20:59 23:56 00:09 Glucose POC Glucose 119 H 204 H 214 H 05/04/19 05/04/19 05/04/19 03:36 06:28 06:43 Glucose 276 H POC Glucose 255 H 264 H 05/04/19 05/04/19 07:26 11:36 Glucose POC Glucose 283 H 362 H* OUTPATIENT ANTIDIABETIC REGIMEN: * Glimepiride 6mg PO daily in the AM * Metformin 1gm PO BID * A1c 11.2% ASSESSMENT: * Mr. Flowers's BSGs since d/c'ing insulin gtt last night have all been poor. Further, his lunch BSG of 362 necessitates re-starting the insulin infusion. More than likely attributable to glucocorticoids and underlying insulin resistance (A1C ~11%). He is ordered a diet and tolerating it. SM 60mg IV q8 continues. PLAN FOR INPATIENT GLYCEMIC CONTROL: * Hold outpatient oral diabetes medications (metformin + glimepiride) * Basal insulin * Lantus 20 units given this AM. 30units to be given tonight * Insulin drip: per moderate stress protocol, goal range 120-180mg/dL * May discontinue insulin drip if 2 consecutive BSGs ( by 1 hr) less than 180 * Bolus insulin * Nutritional / Prandial insulin per carb ratio of 1 unit per 6 grams CHO consumed PLAN FOR DISCHARGE: * to be determined
[2019-05-04] MEDS: ACETAMINOPHEN 500 MG TAB PO SCH (20:53)
[2019-05-04] MEDS: ENOXAPARIN INJ 30 MG/0.3 ML SYR SQ SCH (20:54)
--- NOTE | 2019-05-04 23:42 | Hospitalist Progress Note ---
Date of Service May 04, 2019 Assessment & Plan (1) Asthma: Mild intermittent underlying asthma per history of occasional albuterol use but in reality I do not think he has been treating his symptoms adequately. Will need retesting in 4 to 6 weeks with PFTs. Suspect exacerbated by mold and post nasal drip. Continue current maintenance inhalers. Taper IV steroid to 60mg BID then will switch to PO on Monday (likely aim to go home then as long as glucose better controlled. (2) Cough: Suspect asthma exacerbation due to mold from his bathroom given good correlation with this and post nasal drip. Allergy testing as outpatient recommended. Continued inpatient stay due to uncontrolled glucose levels Possibly exacerbated by lisinopril use and agree with stopping this. Appreciate other pulmonology recommendations with Benadryl, Sudafed, and Flonase. (3) Dyspnea: On exertion. Suspect some obesity hypoventilation causing restrictive lung disease in the setting of asthma exacerbation. Echo unremarkable for pericarditis and only small pericardial effusion which I do not suspect is having a big effect on his dyspnea. (4) Pericarditis: Pericardial thickening on CT scan not appreciated on echocardiogram. Unfortunately we do not have access to cardiac MRI at this facility. However as above I believe his symptoms are much more related to asthma exacerbation rather than pericarditis given no chest pain or EKG changes. (5) Hypomagnesemia: Replete as necessary (6) Obesity: Weight loss discussed with diet and exercise changes. Discussed portion control, carbohydrates and eating slower to enjoy his food more. Discussed alternative diabetes medications as glimepiride is weight gaining (considering GLP-1). Discussed bariatric surgery. Patient to follow up with PCP. (7) GERD (gastroesophageal reflux disease): Stable. Continue pantoprazole (8) HTN (hypertension): Discontinuing lisinopril as above. We will continue to monitor blood pressure. No need to add additional medication at this stage. (9) Obstructive sleep apnea: Continue with CPAP at night. reports very dirty filter (unclear if due to mold in their house vs. came as a dirty filter either way they will change it. (10) Dyslipidemia: Continue simvastatin. (11) Type 2 diabetes mellitus, uncontrolled: Steroid-induced hyperglycemia. Discussed with pharmacy to be placed back on insulin drip. Will taper steroids tomorrow which should help with overall control. Patient interested in GLP-1, will check cost of this on Monday. (12) Family history of coronary arteriosclerosis: Agree with pulm recommendations given significant risk factors of diabetes and family history in setting of dyspnea would recommend a stress test as outpatient. (13) DVT prophylaxis: Continue Lovenox. Subjective Revisited history with the patient. Suspect his asthma is much less well controlled than previously thought as he gets very short of breath on short exertion which is relieved with his inhaler. No recent PFTs. He also remembered he had been re-doing his bathroom at the beginning of this illness and there was a lot of mold involved therefore suspect his is most likely cause of his asthma exacerbation. He reports significant improvement with his shortness of breath on exertion and now on room air at rest. He also has a strong family history of CAD and heart attacks in multiple family members in their 50s. No stress test for a number of years. Diabetes uncontrolled - reports mostly diet of feeling hungry all the time. He is very compliant with medication. Review of Systems Review of Systems: All systems reviewed & are unremarkable except as noted in HPI & below Physical Exam Constitutional: well developed and + morbidly obese; + not well nourished and no acute distress Eyes: + anicteric sclerae; normal pupil size ENMT: external ear and nose normal, oropharynx normal Neck: trachea midline, no thyromegaly + short neck and + thick neck Respiratory: normal respiratory effort and + cough (Frequent dry cough, improving); no respiratory distress, no labored breathing and does not use accessory muscles Auscultation: lungs clear to auscultation bilaterally; no crackles, no rales, no rhonchi and no wheezes Cardiovascular: RRR, no murmur, no edema Gastrointestinal (Abdomen): normal bowel sounds, soft, nontender, no hepatosplenomegaly Musculoskeletal: no cyanosis or clubbing, extremities motor strength 5/5 Skin: no rashes, warm and dry Neurologic: moves all extremities and awake; no focal motor deficits and not confused Motor/Sensory: no tremor, no pronator drift and no sensory deficit Psychiatric: A+Ox3, euthymic affect Lymphatic: no cervical lymphadenopathy Results & Data Vital Signs (Past 12 Hours) Vital Signs Temp Pulse Pulse Resp BP BP Pulse Ox 05/04/19 23:17 76 18 98 05/04/19 20:09 97.7 F 79 18 147/83 H 93 05/04/19 19:37 77 16 93 05/04/19 15:41 97.3 F L 80 18 131/78 92 05/04/19 15:23 84 05/04/19 15:15 83 16 95 05/04/19 11:46 97.9 F 80 20 147/80 H 97 PG Care Time/CCT Total # of Minutes Spent Total Time Spent with Patient: Total time spent is greater than 50% in coordination of care (as documented) at patient's floor/unit and/or counseling patient: (1) Dyspnea Dyspnea type: unspecified Qualified Code(s): R06.00 - Dyspnea, unspecified (2) Pericarditis Chronicity: unspecified Pericarditis type: unspecified type Qualified Code(s): I31.9 - Disease of pericardium, unspecified (3) Type 2 diabetes mellitus, uncontrolled Glycemic state: with hyperglycemia Qualified Code(s): E11.65 - Type 2 diabetes mellitus with hyperglycemia (4) GERD (gastroesophageal reflux disease) Esophagitis presence: without esophagitis Qualified Code(s): K21.9 - Gastro- esophageal reflux disease without esophagitis (5) HTN (hypertension) Hypertension type: essential hypertension Qualified Code(s): I10 - Essential (primary) hypertension (6) Obesity Body mass index: unspecified BMI Obesity classification: adult class 3 (BMI >= 40) Obesity type: due to excess calories Serious obesity comorbidity presence: with serious comorbidity Qualified Code(s): E66.01 - Morbid (severe) obesity due to excess calories (7) Asthma Asthma complication type: with acute exacerbation Asthma persistence: intermittent Asthma severity: mild Qualified Code(s): J45.21 - Mild intermittent asthma with (acute) exacerbation
[2019-05-05] MEDS: ALBUT/IPRATROP 3MG/0.5MG NEB 3 ML VIAL NEB SCH ×6 (03:13→23:05)
[2019-05-05] MEDS ORDERED: INSULIN ASPART 100 UNITS/ML 3 ML PEN SC SCH (04:00)
[2019-05-05 06:49] LABS: Hematocrit (blood only) 39.8 % (42-52); Hemoglobin 13.3 g/dL (14.0-18.0); Immature Granulocytes # (auto) 0.04 K/uL (0.00-0.02); Immature Granulocytes % (auto) 0.3 %; Lymphocytes # (auto) 0.62 K/uL (1.2-3.4); Mean Corpuscular Hemoglobin 30.4 pg (25-34); Mean Corpuscular Hgb Conc 33.4 g/dL (32-36); Mean Corpuscular Volume 91.1 fL (80-100); Mean Platelet Volume 10.1 fL (7.4-10.4); Monocytes # (auto) 0.61 K/uL (0.11-0.59); Monocytes % (auto) 4.9 %; Neutrophils # (auto) 11.23 K/uL (1.4-6.5); Neutrophils % (auto) 89.8 %; Platelet Count 181 K/uL (130-400); RDW Coefficient of Variation 14.7 % (11.5-14.5); RDW Standard Deviation 49.4 fL (36.4-46.3); Red Blood Count 4.37 M/uL (4.7-6.1)
[2019-05-05 07:18] LABS: Albumin Level 3.1 gm/dl (3.4-5.0); BUN Creatinine Ratio 22.8 (10-20); Calcium 9.5 mg/dl (8.5-10.1); Creatinine Clr Calc Pharmacy 91.9 ml/min; Est GFR (African American) 92.1; Est GFR (Non-African American) 79.5; Potassium 4.6 mmol/L (3.5-5.1)
[2019-05-05 07:21] LABS: Albumin Globulin Ratio 0.7 (0.9-2); Bilirubin,Total 0.6 mg/dl (0.2-1); Globulin 4.3 gm/dl (2.5-4.0); Total Protein 7.4 gm/dl (6.4-8.2)
[2019-05-05] MEDS: INSULIN ASPART 100 UNITS/ML 3 ML PEN SC SCH ×4 (08:33→22:16)
[2019-05-05] MEDS: INSULIN GLARGINE SOLOSTAR 100 UNITS/ML 3 ML PEN SC SCH ×2 (08:34→22:15)
[2019-05-05] MEDS: PANTOprazole 40 MG TAB PO SCH (08:36)
[2019-05-05] MEDS: PSEUDOEPHEDRINE HCL 30 MG TAB PO SCH ×3 (08:36→22:13)
[2019-05-05] MEDS: HydrALAZINE 10 MG TAB PO SCH ×3 (08:36→22:10)
[2019-05-05] MEDS: METOPROLOL SUCC 50MG EXT REL TAB PO SCH (08:36)
[2019-05-05] MEDS: SIMVASTATIN 20 MG TAB PO SCH (08:37)
[2019-05-05] MEDS: ASPIRIN 81 MG ECTAB PO SCH (08:37)
[2019-05-05] MEDS: FLUTICASONE/SALMETEROL 100/50 (ADVAIR) 14 PUFF/1 INHALER INH SCH ×2 (08:37→22:09)
[2019-05-05] MEDS: AZITHROMYCIN 250 MG TAB PO SCH (08:37)
[2019-05-05] MEDS: FLUTICASONE PROPIONATE NA SPR 16 GM BTL SCH ×2 (08:38→22:11)
[2019-05-05] MEDS ORDERED: methylPREDNISolone 60 MG in SYRINGE 0 ML IV SCH (09:00)
[2019-05-05] MEDS: predniSONE 20 MG TAB PO SCH (09:12)
--- NOTE | 2019-05-05 09:12 | Pulmonology Progress Note ---
Date of Service May 05, 2019 Assessment & Plan (1) Dyspnea: Impression: 68-year-old male with reported history of asthma (no PFTs available) admitted with increasing shortness of breath and cough. His cough may be related to upper airway cough syndrome as he does endorse some postnasal drip and has frequent throat clearing. With regards to his shortness of breath, not sure we can hang all of his symptoms on asthma as his history is somewhat discordant. CT scan did demonstrate pericardial thickening of unclear significance. Recommendations: 1. Cough: Off lisinopril. Continue aggressive treatment for upper airway cough syndrome with Benadryl, Sudafed, and Flonase. Consideration for saline sinus rinse as an outpatient may be appropriate. Vocal cord dysfunction would be on the differential as well. He will require outpatient PFTs and pulmonary follow- up and may require nasopharyngoscopy. Continue trial of tessalon. He appears to be improving. 2. Dyspnea on exertion: Etiology unclear. Better today. Transition to prednisone 20 mg a day for an additional 3 days can continue inhalers for now. He should have a cardiac stress test performed given a positive family history, can be done in the outpatient setting. Restrictive/constrictive pericardial disease remain on the differential. Would not expect these to improve with steroids or bronchodilators. 3. Sleep disordered breathing: Continue CPAP. The patient is using his home machine. Will need to review compliance data in the outpatient setting 4. Obesity: Weight loss recommended. 5. Wean oxygen as tolerated. Oxygen saturations of 88 to 90% should be targeted. His resting CO2 level is okay and do not believe he has OHS 6. If the patient continues to do well, he may be eligible to be dismissed from the hospital. He should follow-up in the outpatient pulmonary setting for complete PFTs. We will follow with you. Feel free to contact us with questions or concerns. Dyspnea type: unspecified Qualified Code(s): R06.00 - Dyspnea, unspecified (2) Asthma: Asthma severity: mild Asthma persistence: intermittent Asthma complication type: with acute exacerbation Qualified Code(s): J45.21 - Mild intermittent asthma with (acute) exacerbation (3) Abnormal CT scan of lung: (4) Cough: Subjective Patient seen and examined with at bedside. He continues to show slow and steady improvement. His cough is better but not completely resolved. Shortness of breath is better. He is having some issues with blood sugars associated with prednisone administration. No chest pain palpitations or significant lower extremity edema Review of Systems Review of Systems: See HPI. No additions or deletions Physical Exam Constitutional: WD/WN, vitals as above Neck: trachea midline, no thyromegaly Respiratory: normal respiratory effort, lungs clear to auscultation Cardiovascular: RRR, no murmur, no edema Gastrointestinal (Abdomen): normal bowel sounds, soft, nontender, no hepatosplenomegaly Musculoskeletal: Extremities: extremities normal to inspection Skin: no rashes, warm and dry Lymphatic: no cervical lymphadenopathy Results & Data Vital Signs (Past 12 Hours) Vital Signs Temp Pulse Pulse Resp BP BP Pulse Ox 05/05/19 08:17 36.7 C 94 H 19 149/78 H 92 05/05/19 07:01 87 18 97 05/05/19 04:00 36.3 C L 78 20 132/79 94 05/05/19 03:14 88 18 96 05/05/19 00:00 36.4 C L 79 85 22 144/78 H 95 05/04/19 23:17 76 18 98 Laboratory Results 05/05/19 06:11 05/05/19 06:11 Diagnostic Findings No new films PG Care Time/CCT Total # of Minutes Spent Total Time Spent with Patient: Total time spent is greater than 50% in coordination of care (as documented) at patient's floor/unit and/or counseling patient:
--- NOTE | 2019-05-05 14:18 | Pharmacy Report ---
Pharmacy Glycemic Short Note 2 - Date of Service May 05, 2019 - Glycemic Short BSG Results (Last 24 hours): 05/04/19 05/04/19 05/04/19 14:43 15:45 16:40 Glucose POC Glucose 339 H* 295 H 274 H 05/04/19 05/04/19 05/04/19 17:48 18:37 19:42 Glucose POC Glucose 267 H 202 H 175 H 05/04/19 05/04/19 05/04/19 20:43 21:41 23:47 Glucose POC Glucose 155 H 139 H 99 05/05/19 05/05/19 05/05/19 00:08 04:19 06:11 Glucose 236 H POC Glucose 110 H 211 H 05/05/19 05/05/19 07:25 11:18 Glucose POC Glucose 220 H 326 H* OUTPATIENT ANTIDIABETIC REGIMEN: * Glimepiride 6mg PO daily in the AM * Metformin 1gm PO BID * A1c 11.2% ASSESSMENT: * Steroids were tapered this AM to prednisone 20mg QD. Lunchtime BSG still elevated. I anticipate evening BSGs to improve as the prednisone wears off. Will consider NPH plus lantus in the AM. His A1C of 11.2% plus steroids confers a significant amount of insulin resistance. PLAN FOR INPATIENT GLYCEMIC CONTROL: * Hold outpatient oral diabetes medications (metformin + glimepiride) * Basal insulin * lantus 30u BID to continue * Correctional insulin: Goal range 110-140mg/dL. CF: 15, CR:4 PLAN FOR DISCHARGE: * to be determined
[2019-05-05] MEDS: ACETAMINOPHEN 500 MG TAB PO SCH (22:14)
[2019-05-05] MEDS: ENOXAPARIN INJ 30 MG/0.3 ML SYR SQ SCH (22:18)
--- NOTE | 2019-05-06 01:00 | Hospitalist Progress Note ---
Date of Service May 05, 2019 Assessment & Plan (1) Asthma: Mild intermittent underlying asthma per history of occasional albuterol use but in reality I do not think he has been treating his symptoms adequately. His baseline shortness of breath on exertion likely a combination of decond itioning, obesity hypoventilation and asthma. Will need retesting in 4 to 6 weeks with PFTs. Suspect exacerbated by mold and post nasal drip. Continue current maintenance inhalers. We will defer prednisone dosing to Dr. Flores and continue 20 mg daily. His glucose level should be easy to control on this lower dose. (2) Cough: Suspect asthma exacerbation due to mold from his bathroom given good correlation with this and post nasal drip. Allergy testing as outpatient recommended. Stopped lisinopril in case it is contributing. Appreciate other pulmonology recommendations with Benadryl, Sudafed, and Flonase. (3) Dyspnea: On exertion. Suspect some obesity hypoventilation causing restrictive lung disease in the setting of asthma exacerbation. Echo unremarkable for pericarditis and only small pericardial effusion which I do not suspect is having a big if any effect on his dyspnea. (4) Pericarditis: Pericardial thickening on CT scan without pericarditis. As noted by echocardiogram without any compromise and wall movement, EKG or symptoms. (5) Hypomagnesemia: Replete as necessary (6) Obesity: Weight loss discussed with diet and exercise changes. Discussed portion control, carbohydrates and eating slower to enjoy his food more. Discussed alternative diabetes medications as glimepiride is weight gaining (considering GLP-1). Discussed bariatric surgery. Patient to follow up with PCP. (7) GERD (gastroesophageal reflux disease): Stable. Continue pantoprazole (8) HTN (hypertension): Stop lisinopril as above. Blood pressure stable off this (9) Obstructive sleep apnea: Continue with CPAP at night. reports very dirty filter (unclear if due to mold in their house vs. came as a dirty filter either way they will change it. (10) Dyslipidemia: Continue simvastatin. (11) Type 2 diabetes mellitus, uncontrolled: Steroid-induced hyperglycemia. We will follow-up with his primary care doctor regarding GLP-1 agonist For now we will restart him on his home medication in the morning to determine if he needs to go home on insulin to compensate for prednisone use. (12) Family history of coronary arteriosclerosis: Recommend a stress test as outpatient. (13) DVT prophylaxis: Continue Lovenox. (14) Discharge planning issues: Suspect can go home tomorrow. Will switch to usual home medication while on prednisone 20 mg to see if you have any any extra diabetes medications on discharge. Subjective Patient reports continued improvement. Steroids were reduced by Dr. Finnegan today to 20 mg prednisone daily. Still has uncontrolled blood sugars required going back on insulin drip yesterday. Now on a much smaller amounts of prednisone I suspect his sugars will be easier to control. Patient has ongoing intermittent cough however is improving. He has been walking around the wards with improving exercise tolerance. He denies any chest pain. He expresses a willingness to improve his diet regarding his uncontrolled diabetes. Review of Systems Review of Systems: All systems reviewed & are unremarkable except as noted in HPI & below Physical Exam Constitutional: well developed and + morbidly obese; + not well nourished and no acute distress Eyes: + anicteric sclerae; normal pupil size ENMT: external ear and nose normal, oropharynx normal Neck: trachea midline, no thyromegaly + short neck and + thick neck Respiratory: normal respiratory effort and + cough (Frequent dry cough, improving); no respiratory distress, no labored breathing and does not use accessory muscles Auscultation: lungs clear to auscultation bilaterally; no crackles, no rales, no rhonchi and no wheezes Cardiovascular: RRR, no murmur, no edema Gastrointestinal (Abdomen): normal bowel sounds, soft, nontender, no hepatosplenomegaly Musculoskeletal: no cyanosis or clubbing, extremities motor strength 5/5 Skin: no rashes, warm and dry Psychiatric: A+Ox3, euthymic affect Results & Data Vital Signs (Past 12 Hours) Vital Signs Temp Pulse Resp BP BP Pulse Ox 05/05/19 23:31 97.9 F 05/05/19 23:23 65 18 140/81 92 05/05/19 23:06 71 18 94 05/05/19 22:06 62 17 137/77 95 05/05/19 19:05 79 16 98 05/05/19 15:50 97.3 F L 73 18 125/82 95 05/05/19 15:27 97.5 F L 71 18 137/82 90 05/05/19 15:17 92 H 16 94 PG Care Time/CCT Total # of Minutes Spent Total Time Spent with Patient: Total time spent is greater than 50% in coordination of care (as documented) at patient's floor/unit and/or counseling patient: (1) Dyspnea Dyspnea type: unspecified Qualified Code(s): R06.00 - Dyspnea, unspecified (2) Pericarditis Chronicity: unspecified Pericarditis type: unspecified type Qualified Code(s): I31.9 - Disease of pericardium, unspecified (3) Type 2 diabetes mellitus, uncontrolled Glycemic state: with hyperglycemia Qualified Code(s): E11.65 - Type 2 diabetes mellitus with hyperglycemia (4) GERD (gastroesophageal reflux disease) Esophagitis presence: without esophagitis Qualified Code(s): K21.9 - Gastro- esophageal reflux disease without esophagitis (5) HTN (hypertension) Hypertension type: essential hypertension Qualified Code(s): I10 - Essential (primary) hypertension (6) Obesity Body mass index: unspecified BMI Obesity classification: adult class 3 (BMI >= 40) Obesity type: due to excess calories Serious obesity comorbidity presence: with serious comorbidity Qualified Code(s): E66.01 - Morbid (severe) obesity due to excess calories (7) Asthma Asthma complication type: with acute exacerbation Asthma persistence: intermittent Asthma severity: mild Qualified Code(s): J45.21 - Mild intermittent asthma with (acute) exacerbation
[2019-05-06] MEDS: ALBUT/IPRATROP 3MG/0.5MG NEB 3 ML VIAL NEB SCH ×3 (02:32→11:19)
[2019-05-06 06:57] LABS: Hematocrit (blood only) 41.2 % (42-52); Hemoglobin 13.8 g/dL (14.0-18.0); Mean Corpuscular Hemoglobin 30.6 pg (25-34); Mean Corpuscular Hgb Conc 33.5 g/dL (32-36); Mean Corpuscular Volume 91.4 fL (80-100); Nucleated RBC # (auto) 0.42 K/uL (0-0); Nucleated RBC % (auto) 4.6 %; RDW Standard Deviation 50.4 fL (36.4-46.3); Red Blood Count 4.51 M/uL (4.7-6.1); White Blood Count 9.04 K/uL (4.8-10.8)
[2019-05-06 06:58] LABS: Basophils # (auto) 0.08 K/uL (0-0.2); Basophils % (auto) 0.9 %; Eosinophils # (auto) 0.05 K/uL (0-0.5); Eosinophils % (auto) 0.6 %; Immature Granulocytes # (auto) 0.02 K/uL (0.00-0.02); Immature Granulocytes % (auto) 0.2 %; Lymphocytes # (auto) 1.62 K/uL (1.2-3.4); Lymphocytes % (auto) 17.9 %; Monocytes # (auto) 1.07 K/uL (0.11-0.59); Monocytes % (auto) 11.8 %; Neutrophils % (auto) 68.6 %; Platelet Estimate Decreased (Normal); RBC Morphology Unremarkable
[2019-05-06 07:04] LABS: Albumin Level 2.8 gm/dl (3.4-5.0); BUN Creatinine Ratio 23.1 (10-20); Creatinine Clr Calc Pharmacy 97.9 ml/min; Est GFR (African American) 99.4; Est GFR (Non-African American) 85.8; Potassium 4.2 mmol/L (3.5-5.1)
[2019-05-06 07:06] LABS: Albumin Globulin Ratio 0.7 (0.9-2); Bilirubin,Total 0.4 mg/dl (0.2-1); Globulin 4.1 gm/dl (2.5-4.0); Total Protein 6.9 gm/dl (6.4-8.2)
[2019-05-06] MEDS: FLUTICASONE PROPIONATE NA SPR 16 GM BTL SCH (07:51)
[2019-05-06] MEDS: FLUTICASONE/SALMETEROL 100/50 (ADVAIR) 14 PUFF/1 INHALER INH SCH (07:51)
[2019-05-06] MEDS: predniSONE 20 MG TAB PO SCH (07:52)
[2019-05-06] MEDS: SIMVASTATIN 20 MG TAB PO SCH (07:52)
[2019-05-06] MEDS: PANTOprazole 40 MG TAB PO SCH (07:52)
[2019-05-06] MEDS: PSEUDOEPHEDRINE HCL 30 MG TAB PO SCH ×2 (07:52→14:26)
[2019-05-06] MEDS: AZITHROMYCIN 250 MG TAB PO SCH (07:52)
[2019-05-06] MEDS: ASPIRIN 81 MG ECTAB PO SCH (07:52)
[2019-05-06] MEDS: METOPROLOL SUCC 50MG EXT REL TAB PO SCH (07:52)
[2019-05-06] MEDS: HydrALAZINE 10 MG TAB PO SCH ×2 (07:53→15:10)
[2019-05-06] MEDS ORDERED: METFORMIN HCL 500 MG TAB PO SCH (08:00)
[2019-05-06] MEDS: INSULIN ASPART 100 UNITS/ML 3 ML PEN SC SCH ×2 (08:16→12:20)
[2019-05-06] MEDS ORDERED: GLIMEPIRIDE 2 MG TAB PO SCH (09:00)
[2019-05-06] MEDS ORDERED: INSULIN GLARGINE SOLOSTAR 100 UNITS/ML 3 ML PEN SC SCH (09:00)
--- NOTE | 2019-05-06 10:25 | Pulmonology Progress Note ---
Date of Service May 06, 2019 Assessment & Plan (1) Dyspnea: Patient reports shortness of breath on arrival. He does have a history of asthma diagnosed by family care provider without PFTs. Only medication use at home with albuterol inhaler which he uses very very infrequently Cough was primary complaint initially but that is now resolved Patient continues with some sputum this morning and states he feels better now that sputum is mobilizing. Continue 3 more days of prednisone and stop. Follow-up pulmonary appointment with Dr. Flores in 2 weeks for PFTs Dyspnea type: unspecified Qualified Code(s): R06.00 - Dyspnea, unspecified (2) Pericarditis: Patient questions etiology of pericarditis Currently no chest pain Echocardiogram with no evidence of pericardial fluid or pericardial wall thickness CT scan of the chest did show some pericardial thickening of unknown etiology Patient does have prior family history of acute cardiac disease and early Follow-up with cardiology as an outpatient No current chest pain so no need for treatment on discharge Chronicity: unspecified Pericarditis type: unspecified type Qualified Code(s): I31.9 - Disease of pericardium, unspecified (3) Asthma: Patient appears to have some environmental triggers but no formal testing in the past We will have patient follow-up in outpatient clinic for full PFTs No bronchospasm on exam today Oxygenating well on room air Continue work-up and monitoring outpatient Asthma complication type: with acute exacerbation Asthma persistence: intermittent Asthma severity: mild Qualified Code(s): J45.21 - Mild intermittent asthma with (acute) exacerbation (4) Obstructive sleep apnea: Patient with home CPAP machine followed by [facility] Patient to follow-up with outpatient clinic Continue CPAP as directed at home until changes made by outpatient providers Chemistry CO2 is 27 VBG pH 7.42 Thank you for including us in the care of this patient. Please refer to Dr. Flores's addendum for further recommendations. Patient appears to be at baseline and is anxious to go home. Could be discharged from a pulmonary standpoint. We will follow-up in 2 weeks in the outpatient clinic with Dr. Flores. Supervising Physician Co-Signing Physician Notes Seen and examined. Discussed with PEDRITO and agree with assessment as noted. continues to slowly improve. OK to discharge with outpatient pulmonary follow up. Subjective Attending: Dr. Flores Is a 68-year-old male that presents with shortness of breath. The patient states that he has had asthma for some time but never had it worked up. He questions as to whether it is caused by environmental triggers. He recently moved and is surrounded [place]. They also indicate that they did some remodeling the home and found significant amounts of mold in the bathroom. Patient has never had allergy testing and is never had PFTs. The patient states that he feels 100% better than when admitted last . The patient states that his cough is primarily resolved. Other than in the morning when he had some sputum production. He does have MARGE and has a CPAP machine at home. This is managed by [facility]. The patient has no bronchospasm. He does have a significant amount of productive sputum which is yellow in color. He states that typically it is yellow. Up until last 2 days he states that he has had minimal sputum production and feels much better now that he can mobilize his secretions. The patient has no current chest pain. He does question etiology of pericarditis. Echocardiogram completed 05/03/2019 shows no evidence of pericardial fluid. CT scan of the chest showed question of mild enhancement and thickening within the pericardial lining. The patient has a past history of smoking but stopped 40 years ago. The patient has no further acute complaints. Review of Systems Review of Systems: All systems reviewed & are unremarkable except as noted in HPI & below Physical Exam Physical Exam: GENERAL : No acute distress. Pleasant. at bedside EYES: No icterus, gaze conjugate NOSE: No evidence of epistaxis MOUTH: No lesions or candidiasis. Tongue is midline. NECK: Supple LUNGS: CTA B/L, no wheezes, rales or rhonchi. Good inspiratory effort. No paradoxical chest wall movement. HEART: Regular, rate controlled. No appreciation of murmurs gallops or rubs. ABDOMEN: Soft, NT, ND, BS Present. What appears to be an umbilical hernia is present and nonpainful. It is not reducible. There are no bowel sounds over the hernia. EXTREMITIES: No LE edema, pedal pulses intact and equal bilaterally. No calf tenderness. NEURO: A&OX3. Results & Data Vital Signs (Past 12 Hours) Vital Signs Temp Pulse Resp BP BP Pulse Ox 05/06/19 07:40 36.5 C 65 20 127/76 90 05/06/19 07:30 66 18 93 05/06/19 02:33 74 16 94 11/17/19 23:31 36.6 C 05/05/19 23:23 65 18 140/81 92 05/05/19 23:06 71 18 94 Laboratory Results 05/06/19 05:43 05/06/19 05:43 Diagnostic Findings No imaging completed since 05/02/2019 PG Care Time/CCT Total # of Minutes Spent Total Time Spent with Patient: Total time spent is greater than 50% in coordination of care (as documented) at patient's floor/unit and/or counseling patient:
--- NOTE | 2019-05-06 11:01 | Pharmacy Report ---
Pharmacy Glycemic Short Note 2 - Date of Service May 06, 2019 - Glycemic Short BSG Results (Last 24 hours): 05/05/19 05/05/19 05/05/19 11:18 16:54 20:16 Glucose POC Glucose 326 H* 193 H 204 H 05/06/19 05/06/19 05:43 07:54 Glucose 90 POC Glucose 81 OUTPATIENT ANTIDIABETIC REGIMEN: * Glimepiride 6mg PO daily in the AM * Metformin 1gm PO BID * A1c 11.2% ASSESSMENT: * BSGs have improved since glucocorticoids were tapered to prednisone 20mg QAM. Diet continues. PLAN FOR INPATIENT GLYCEMIC CONTROL: * Hold outpatient oral diabetes medications (metformin + glimepiride) * Basal insulin - decreased * lantus 20 units given this AM x1 * Correctional insulin - loosened : Goal range 110-140mg/dL. CF: 20, CR:6 PLAN FOR DISCHARGE: * given his A1C of 11.2% he should go home on insulin. Considering socioeconomic status, i would recommend ReliOn 70/30 insulin 25u before breakfast, 20u before dinner. Out of pocket cost will be ~$25/month for the vial. And $13/month for the syringes. * D/c glimepiride * Cont. metformin for the CV benefit
--- NOTE | 2019-05-07 08:14 | Discharge Summary ---
Date of Service May 06, 2019 Admission HPI Per Admitting Provider 68-year-old male with history of just induced asthma, obstructive sleep apnea on CPAP (reports being compliant), hypertension, hyperlipidemia, DM 2, GERD, obesity, hearing difficulty presents with worsening shortness of breath x3 weeks. Reports dry developing dry cough and shortness of breath 3 weeks ago saw PCP and was prescribed steroids and antibiotics after he was given a breathing treatment. Per he improved after treatment but worsened again and has been gradually declining since. He used to be short of breath only on exertion and now is short of breath at rest as well which is why they came to the emergency room. Reports cough persistent and still dry. Associated with chills and headache. No chest pain. Denies pain when taking deep breath. Denies any fever, light headedness, chest pain, nausea, vomiting, abdominal pain, diarrhea, constipation, hematochezia, melena, hematuria, dysuria Reports smoking from age 14 to 21 to 1 pack/day but has quit about 45 years ago Principal Diagnosis Asthma exacerbation Discharge Exam Constitutional: well developed and + morbidly obese; + not well nourished and no acute distress Eyes: + anicteric sclerae; normal pupil size ENMT: external ear and nose normal, oropharynx normal Neck: trachea midline, no thyromegaly + short neck and + thick neck Respiratory: normal respiratory effort and + cough (Frequent dry cough, improving); no respiratory distress, no labored breathing and does not use accessory muscles Auscultation: lungs clear to auscultation bilaterally; no crackles, no rales, no rhonchi and no wheezes Cardiovascular: RRR, no murmur, no edema Gastrointestinal (Abdomen): normal bowel sounds, soft, nontender, no hepatosp lenomegaly Musculoskeletal: no cyanosis or clubbing, extremities motor strength 5/5 Skin: no rashes, warm and dry Psychiatric: A+Ox3, euthymic affect Discharge Data Allergies Allergy/AdvReac Type Severity Reaction Status Date / Time nickel Allergy Mild rash where Verified 05/02/19 16:45 it touches skin No Known Drug Allergies Allergy . Verified 05/02/19 16:45 Consultations 05/02/19 17:59 ED Decision to Admit Stat 05/02/19 22:10 Consult Pulmonology Routine Ordered Studies 05/02/19 15:40 US point of care ultrasound Stat 05/02/19 16:11 CT angio chest PE protocol Stat Hospital Course (1) Asthma: Mild intermittent underlying asthma per history of occasional albuterol use but in reality I do not think he has been treating his symptoms adequately. His baseline shortness of breath on exertion likely a combination of deconditioning, obesity hypoventilation and asthma. Suspect exacerbated by mold and post nasal drip. Continue current maintenance inhalers. Appreciate input from pulmonary: will discharge on additoal 3 days of prednisone. will continue flonase and sudafed as well. Follow-up pulmonary appointment with Dr. Flores in 2 weeks for PFTs (2) Cough: Suspect asthma exacerbation due to mold from his bathroom given good correlation with this and post nasal drip. Allergy testing as outpatient recommended. Stopped lisinopril in case it is contributing. Appreciate other pulmonology recommendations with Benadryl, Sudafed, and Flonase. (3) Dyspnea: On exertion. Suspect some obesity hypoventilation causing restrictive lung disease in the setting of asthma exacerbation. Echo unremarkable for pericarditis and only small pericardial effusion which I do not suspect is having a big if any effect on his dyspnea. (4) Pericarditis: Pericardial thickening on CT scan without pericarditis. As noted by echocardiogram without any compromise and wall movement, EKG or symptoms. (5) Hypomagnesemia: Replete as necessary (6) Obesity: Weight loss discussed with diet and exercise changes. Discussed portion control, carbohydrates and eating slower to enjoy his food more. Discussed alternative diabetes medications as glimepiride is weight gaining (considering GLP-1). Discussed bariatric surgery. Patient to follow up with PCP. (7) GERD (gastroesophageal reflux disease): Stable. Continue pantoprazole (8) HTN (hypertension): Stop lisinopril as above. Blood pressure stable off this (9) Obstructive sleep apnea: Continue with CPAP at night. reports very dirty filter (unclear if due to mold in their house vs. came as a dirty filter either way they will change it. (10) Dyslipidemia: Continue simvastatin. (11) Type 2 diabetes mellitus, uncontrolled: Steroid-induced hyperglycemia. Due to socioeconomical reasons patient has not been able to take his diabetic medications. Will place him on Reolin 25 units at breakfast and 20 units before dinner. Patient will continue with metformin as well. stop glimepiride. (12) Family history of coronary arteriosclerosis: Recommend a stress test as outpatient. (13) DVT prophylaxis: Continue Lovenox. (14) Discharge planning issues: Suspect can go home tomorrow. Will switch to usual home medication while on prednisone 20 mg to see if you have any any extra diabetes medications on discharge. Total Time Total Time Spent Total Time Spent (In Minutes): 35 Total Time Includes: Examination of the Patient, Discharge Planning and Medica tion Reconciliation Discharge Plan Discharge Items Patient Disposition: Home - Self-Care Reason For Visit: DYSPNEA Discharge Diagnosis: Asthma exacerbation -suspected due to mold in bathroom Cough Shortness of breath on exertion Pericardial thickening without pericarditis Obstructive sleep apnea Uncontrolled type 2 diabetes Family history of coronary artery disease Condition on Discharge: Good Activity: Resume your previous activity Non-emergency contact: Primary Care Provider Call non-emergency contact if: you have any medication questions Follow-up/Referrals: Peter Mays MD [Primary Care Provider] - 05/13/19 10:00 am (follow up ap pointment with your primary care physician- you are scheduled with Jeny Holcomb at the [facility] office) Diet: Carb Consistent or DM2 Addtl Attending Provider Instructions: You are admitted to [facility] from May 02- due to persistent cough and shortness of breath on exertion. You are diagnosed with asthma exacerbation likely due to recent bathroom renovation mold exposure. This was treated with asthma nebulizers, maintenance inhalers and steroids. Your lisinopril was also discontinued due to severity of cough however suspect it could be restarted in the future if necessary. Consider following up with allergy clinic. Recommend getting lung function tests when feeling better in 4 to 6 weeks Steroids caused high glucose levels requiring high doses of insulin. Your HbA1c was measured at 11.2 therefore baseline your diabetes does not appear well- controlled. Recommend following up with your family physician regarding this. Due to significance of your shortness of breath on exertion and family history of coronary artery disease would recommend organizing a stress test as an outpatient. Suggest dobutamine echo given prior poor exercise tolerance for prior treadmill test. Pending Studies at Discharge: No Stand-Alone Forms: My [facility] [employer], Smoking Cessation Medications and DC Order Prescriptions: New Novolin 70-30 FlexPen U-100 100 unit/mL (70-30) insulin pen See Rx Instructions .ROUTE .COMPLEX Qty: 15 RF: 0 diphenhydramine HCl [Benadryl] 25 mg Capsule 25 mg PO TID Qty: 15 RF: 0 hydralazine 10 mg Tablet 10 mg PO TID Qty: 90 RF: 0 prednisone 20 mg Tablet 20 mg PO DAILY Qty: 3 RF: 0 pseudoephedrine HCl [Suphedrine] 30 mg Tablet 30 mg PO TID Qty: 15 RF: 0 fluticasone propionate 50 mcg/actuation [place],Suspension 1 spry NA DAILY Qty: 1 RF: 0 sodium chloride [Saline Mist] 0.65 % Aerosol,[place] 2 spry NA Q4 PRN (Reason: Dry Nasal Passages) Qty: 1 RF: 0 Continued fluticasone propion-salmeterol [Advair Diskus] 100-50 mcg/dose blister with device 1 puffs INH BID Qty: 60 RF: 2 aspirin 81 mg tablet,delayed release (DR/EC) 81 mg PO QAM RF: 0 acetaminophen [Tylenol Extra Strength] 500 mg tablet 1,500 mg PO HS RF: 0 metformin 1,000 mg tablet 1,000 mg PO BID Qty: 180 RF: 0 metoprolol succinate 100 mg tablet extended release 24 hr 100 mg PO QAM RF: 0 simvastatin 20 mg tablet 20 mg PO QAM RF: 0 omeprazole 20 mg capsule,delayed release(DR/EC) 20 mg PO QAM RF: 0 albuterol sulfate [Ventolin HFA] 90 mcg/actuation HFA aerosol inhaler 1 puffs INH Q6H PRN (Reason: Shortness Of Breath Or Wheezing) RF: 0 Discontinued glimepiride 4 mg tablet 6 mg PO QAM RF: 0 naproxen sodium [Aleve] 220 mg tablet 220 mg PO HS PRN (Reason: Pain) RF: 0 lisinopril 5 mg tablet 5 mg PO QAM RF: 0 No Action (DME) lancets [OneTouch Delica Lancets] 33 gauge misc See Dose Instructions .ROUTE .MEDSUPPLY Qty: 100 RF: 0 (DME) OneTouch Verio strip See Dose Instructions .ROUTE .MEDSUPPLY Qty: 10 RF: 0 (DME) CPAP Machine Misc See Dose Instructions .ROUTE .MEDSUPPLY Qty: 1 RF: 0 (DME) CPAP Supplies Misc See Dose Instructions .ROUTE .MEDSUPPLY Qty: 1 RF: 0 Discharge Orders: Discharge Order (Routine); Ordered 05/06/19 Ordered By: Kevin Lynne/Other Patient Handouts: Diabetes Residential Complications, Diabetes Healthy Meals, Diabetes Carbs, Diabetes Exercise Benefits, Diabetes Exercise Get Started, Diabetes Activity Tips, A1C Admission Data Admit Date/Time: 05/02/19 21:22 Attending Provider: Kevin Burden Admit Provider: Galen Bunch Primary Care Provider: Peter Mays Other Providers: Galen Bunch ; Nba Flores Other Interventions: Discharge Summary Assessment (RN) Last Done: 05/06/19 15:39 DC Date/Time DO NOT enter until pt leaves facility: 05/06/19 16:15
== END 2019-05-06 16:15 | disposition home or self-care (01) | DRG 202 ==
LOC: ED 15:11 → SUATTDRO 21:22 → 1E 21:22 → 2S 05-03 10:44 → 4W 05-05 13:54